=== PATIENT | female | born 1975 | race Caucasian/White ===

== ENCOUNTER 2019-10-18 00:50 | Emergency (ER) | payer OTHER, MEDICAID, SELFPAY ==
[2019-10-18 01:00] VITALS: BP 123/97; PULSE 101; RESP 20; TEMP 37.6; O2SAT 93; BMI 34.2
[2019-10-18 01:02] VITALS: PULSE 101; RESP 20; TEMP 37.6; O2SAT 93
--- NOTE | 2019-10-18 01:04 | ED.URI ---
HPI - URI/Sore Throat General Chief Complaint: Upper Respiratory Symptoms Stated Complaint: coughing, fever, fatigue diff breathing Time Seen by Provider: 10/18/19 00:52 Source: patient Mode of arrival: Family Vehicle Limitations: no limitations History of Present Illness HPI Narrative: 44-year-old female. Has a history of sarcoid. Uses oxygen at home as needed. Also has a nebulizer at home. States that for the past 2-3 days has had fatigue, increase in sputum production, fevers, body aches, she states she feels like she has the flu. Has been using her nebulizer at home without any improvement. Related Data Previous Rx's Medication Instructions Recorded azithromycin 250 mg PO DAILY 4 Days #4 tab 10/18/19 oseltamivir [Tamiflu] 75 mg PO BID 5 Days #10 cap 10/18/19 Allergies Allergy/AdvReac Type Severity Reaction Status Date / Time prochlorperazine Allergy Intermediate It sends Unverified 02/05/18 12:33 [From COMPAZINE] me into a Major panic attack Sulfa (Sulfonamide Allergy Intermediate HIVES Unverified 02/05/18 12:33 Antibiotics) [SULFA (SULFONAMIDE ANTIBIOTICS)] aspirin [ASPIRIN] Allergy Unknown THINS MY Unverified 02/05/18 12:33 BLOOD Review of Systems Constitutional Constitutional: Reports fatigue, Reports fever(s) and Reports lethargy ENT Ears, Nose, Mouth, and Throat: Denies nasal congestion, Denies nasal discharge and Denies sore throat Cardiovascular Cardiovascular: Denies chest pain and Reports dyspnea Respiratory Respiratory: Reports cough and Reports dyspnea Gastrointestinal Gastrointestinal: Denies abdominal pain, Denies nausea and Denies vomiting Genitourinary Genitourinary: Denies dysuria Musculoskeletal Musculoskeletal: Denies myalgias and Denies arthralgias Integumentary/Breasts Skin/Breast: Denies lesions and Denies rash Neurologic Neurologic: Denies behavioral changes Psychiatric Psychiatric: Denies behavioral changes Endocrine Endocrine: Reports fatigue Hematologic/Lymphatic Hematologic/Lymphatic: Denies easy bleeding and Denies easy bruising Allergic/Immunologic Allergic/Immunologic: Denies urticaria Patient History Medical History Sarcoid (Inactive) Social History Smoking Status: Current every day smoker Smoking Status: Current every day smoker tobacco type: cigarettes alcohol intake frequency: holidays/special occasions only Substance Use Type: does not use Exam Initial Vital Signs Initial Vital Signs: Vital Signs Temperature 99.7 F H 10/18/19 01:00 Pulse Rate 101 H 10/18/19 01:00 Respiratory Rate 20 10/18/19 01:00 Blood Pressure 123/97 H 10/18/19 01:00 Pulse Oximetry 93 10/18/19 01:00 Const General: cooperative, healthy appearing and comfortable Orientation: alert and awake HENMT Head: normal to inspection and normocephalic Resp Effort & Inspection: labored and tachypneic Auscultation: rhonchi Cardio Rate: regular rate Rhythm: regular rhythm GI Inspection: non-distended Skin Lesions: no lesions Rashes: no rashes Neuro General: alert and awake Cognition: normal cognition Speech: speech normal Extrem General: normal to inspection, capillary refill normal and No edema Psych Appearance: grossly normal and well kempt Course Orders Ordered: ED Orders 10/18/19 01:05 XR chest 1V Stat 10/18/19 01:10 Influenza A & B (PCR) Stat Discontinued Medications Albuterol/Ipratropium (Duoneb) 3 ml INH NOW ONE Stop: 10/18/19 01:03 Last Admin: 10/18/19 01:08 Dose: 3 ml Documented by: DONALD Azithromycin (Zithromax) 500 mg PO NOW ONE Stop: 10/18/19 01:53 Last Admin: 10/18/19 02:04 Dose: 500 mg Documented by: JOEY Vital Signs Vital signs: Vital Signs - 8 hr 10/18/19 01:00 10/18/19 01:02 10/18/19 01:08 Temperature 99.7 F H 99.7 F H Pulse Rate 101 H 101 H 84 Respiratory Rate 20 20 22 Blood Pressure 123/97 H Pulse Oximetry 93 93 94 10/18/19 02:00 Temperature Pulse Rate 88 Respiratory Rate 18 Blood Pressure 153/93 H Pulse Oximetry 99 MDM - URI/Sore Throat Lab Data Attestation: I reviewed the patient's lab results. Labs: Lab Results 10/18/19 Range/Units 01:10 Influenza A (RT-PCR) Flu a positive H (NEGATIVE) Influenza B (RT-PCR) Flu b negative (NEGATIVE) Imaging Data Chest x-ray: Radiologist's impression: Increased markings right lower lobe potential pneumonia MDM Narrative Medical decision making narrative: Patient has oxygen that she uses occasionally at home. She is flu positive. Her symptoms have started greater than 48 hours ago. I did discuss that Tamiflu is most likely not going to be effective however given her underlying lung issues in her use of oxygen in her the presenting symptoms treating her with Tamiflu is not unreasonable. She was given a prescription for this. She also has had a productive cough, body aches, fevers, chest x-ray has increased markings in the right lower lobe which could be concerning for pneumonia. She has prednisone at home. She is going to start taking her prednisone. I also feel that given her presenting symptoms and her lung underlying lung issues that treating her with antibiotics is not unreasonable. She was given 1st dose of azithromycin here in the ER and a prescription for the remainder. She was given return precautions and follow-up instructions. She expressed understanding and agreement plan. Discharge Plan Departure Patient Disposition: Home Clinical Impression: Influenza, Bronchitis, Sarcoid Discharge Date/Time: 10/18/19 02:00 Instructions: DI for Influenza -- Adult Activity Restrictions/Additional Instructions: You can continue to take either Tylenol or ibuprofen for your fevers and body aches. I do recommend that you take 20 mg of the prednisone you have at home on a daily basis for the next 5 days. Take antibiotics like we discussed. Take the Tamiflu as directed. I'd also continue to use your nebulizers at home every 4 hours as needed. Return to the emergency department for any new or worsening symptoms Prescriptions: New azithromycin 250 mg tablet 250 mg PO DAILY 4 Days Qty: 4 RF: 0 oseltamivir [Tamiflu] 75 mg capsule 75 mg PO BID 5 Days Qty: 10 RF: 0
--- NOTE | 2019-10-18 01:05 | DI.RAD.S_ITS ---
PROCEDURE: XR CHEST 1V INDICATIONS: Cough and fever eval for pneumonia TECHNIQUE: One view of the chest was acquired. COMPARISON: [facility], CR, XR CHEST 2 VIEWS, 04/01/2019, 13:30[facility], CR, CHEST 1 VIEW, 05/11/2016, 23:57. FINDINGS: Surgical changes and devices: None. Lungs and pleura: The lungs are clear. Subtly increased pulmonary markings at the right lung base are unchanged when compared with the study dated 04/01/19 and likely represent pulmonary vasculature. No acute pulmonary radiopacities. No pleural effusion or pneumothorax. Mediastinum: Mediastinal contours appear normal. Heart size is normal. Bones and chest wall: No suspicious bony lesions. Overlying soft tissues appear unremarkable. IMPRESSION: No acute cardiopulmonary findings. Dictated by: Talia Cooley M.D. on 10/18/2019 at 6:42 Approved by: Talia Cooley M.D. on 10/18/2019 at 6:45
[2019-10-18 01:08] VITALS: PULSE 84; RESP 22; O2SAT 94
[2019-10-18] MEDS: ALBUTEROL/IPRATROPIUM 3 ML AMPUL INH (01:08)
[2019-10-18 01:41] LABS: Influenza A - CEPHEID Flu A POSITIVE (NEGATIVE); Influenza B - CEPHEID Flu B NEGATIVE (NEGATIVE)
[2019-10-18 02:00] VITALS: BP 153/93; PULSE 88; RESP 18; O2SAT 99
[2019-10-18] MEDS: AZITHROMYCIN 250 MG TABLET 500 MG PO (02:04)
== END 2019-10-18 02:00 | disposition home or self-care (01) ==
PROVIDERS: Emergency Provider Emergency Medicine
DX: J09.X2 Influenza due to identified novel influenza A virus with other respiratory manifestations (principal); J20.9 Acute bronchitis, unspecified; D86.9 Sarcoidosis, unspecified
CPT/HCPCS: 71045; 87502; 94640; 99281; 99283

== ENCOUNTER 2019-12-28 17:56 | Emergency (ER) | payer OTHER, MEDICAID, SELFPAY ==
[2019-12-28 18:08] VITALS: BP 122/62; PULSE 83; RESP 18; TEMP 36.8; O2SAT 95; BMI 33.1
[2019-12-28] MEDS: MAG HYDROX PO (19:11)
[2019-12-28] MEDS: [UNRECOGNIZED DRUG - OTHER] PO (19:11)
[2019-12-28] MEDS: ALUMINUM PO (19:11)
--- NOTE | 2019-12-28 19:41 | ED_ITS ---
HPI - Dental/Oral <TERELL Henley - Last Filed: 12/28/19 20:03> General Chief complaint: Dental/Oral Stated complaint: poss thrush/mouth lesions Time Seen by Provider: 12/28/19 18:02 Source: patient Mode of arrival: Ambulatory Limitations: no limitations History of Present Illness HPI Narrative: This is a 44 year female, smoker, who presents to ED with painful oral lesions. Patient reports chronic lung condition sarcoid and takes 2 inhalers including inhaled corticosteroid, Arnuity. 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 Moe about a month ago. Patient reports the white patches has improved but now she is having painful oral lesions. Patient reports she is unable to use her dentures or eating due to pain. Patient has history of genital herpes but without frequent recurrence and she is wondering whether her symptoms are due to HSV type 2. Patient denies having oral sex who has genital herpes infection. She denies history of diabetes but reports that she is immunocompromised. She currently is not taking steroids systematically. She denies fever, chills, nausea or vomiting. Related Data Home Medications Medication Instructions Recorded Confirmed fluticasone furoate [Arnuity INHALATION 12/28/19 Ellipta] nystatin 12/28/19 tiotropium-olodaterol [Stiolto INHALATION 12/28/19 Respimat] Previous Rx's Medication Instructions Recorded chlorhexidine gluconate 15 ml BUCCAL BID #450 ml 12/28/19 lidocaine HCl [Lidocaine Viscous] 5 ml MM Q8H PRN #100 ml 12/28/19 Allergies Allergy/AdvReac Type Severity Reaction Status Date / Time prochlorperazine Allergy Intermediate It sends Verified 12/28/19 19:11 [From COMPAZINE] me into a Major panic attack Sulfa (Sulfonamide Allergy Intermediate HIVES Verified 12/28/19 19:11 Antibiotics) [SULFA (SULFONAMIDE ANTIBIOTICS)] aspirin [ASPIRIN] Allergy Unknown THINS MY Verified 12/28/19 19:11 BLOOD Review of Systems <TERELL Henley - Last Filed: 12/28/19 20:03> Review of Systems Narrative: General: Denies fever, chills, fatigue, malaise, sweats. HEENT: See HPI Respiratory: Denies dyspnea, cough, wheezing, hemoptysis, sputum. Cardiovascular: Denies chest pain, palpitations, orthopnea, edema. Gastrointestinal: Denies nausea, vomiting, abdominal pain, diarrhea, constipation, melena. : Denies dysuria, frequency, incontinence, hematuria, urinary retention. Musculoskeletal: Denies weakness, joint pain or bony pain. Skin: Denies rash, skin lesions, or other. Neurologic: Denies weakness, headache, numbness, change in speech, confusion, seizures, incoordination. Psychiatric: No concerning psychosocial issues. 12-point review of systems is negative except for those stated above. Patient History <TERELL Henley - Last Filed: 12/28/19 20:03> Medical History Colon cancer (Acute) Sarcoid (Inactive) Surgical History H/O left knee surgery (Acute) History of appendectomy (Acute) History of lung surgery (Acute) History of surgical removal of intestinal structure (Acute) Social History Smoking Status: Current every day smoker Smoking Status: Current every day smoker tobacco type: cigarettes alcohol intake frequency: holidays/special occasions only Substance Use Type: does not use Exam <TERELL Henley - Last Filed: 12/28/19 20:03> Narrative Exam Narrative: General appearance: well developed, well nourished, in no acute distress. Head: normocephalic, atraumatic, no scalp lesions, non-tender. ENT: Hearing grossly intact. Edentuolus, mucous membrane dry, white patches on tongue and hard palate. Non blistering, non-erythematous lesions on upper gum. Throat without erythema, tonsillar hypertrophy or exudate. Uvula in midline, airway patent. Neck/Thyroid: neck supple, full range of motion, no visible masses or meningeal signs. No JVD, non-tender without lymphadenopathy. Skin: no suspicious rashes, lesions over visible areas. Warm and dry and appropriate color for ethnicity. Heart: no clubbing, no cyanosis, no edema. S1 and S2 normal. RRR w/o murmurs, clicks, or bruits. Lungs: Breathing even and unlabored. No stridor. No accessory muscles used. Able to speak in full sentences. Chest: normal shape and expansion. Abdomen: obese, non-distended. Neurologic: alert and oriented. 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 Psych: good eye contact, normal affect. Initial Vital Signs Initial Vital Signs: Vital Signs Temperature 98.2 F 12/28/19 18:08 Pulse Rate 83 12/28/19 18:08 Respiratory Rate 18 12/28/19 18:08 Blood Pressure 122/62 12/28/19 18:08 Pulse Oximetry 95 12/28/19 18:08 <Derick Mendoza MD - Last Filed: 12/28/19 23:06> Initial Vital Signs Initial Vital Signs: Vital Signs Temperature 98.2 F 12/28/19 18:08 Pulse Rate 83 12/28/19 18:08 Respiratory Rate 18 12/28/19 18:08 Blood Pressure 122/62 12/28/19 18:08 Pulse Oximetry 95 12/28/19 18:08 Scores <TERELL Henley - Last Filed: 12/28/19 20:03> GCS Elsie coma scale eye opening: Spontaneous Elsie coma scale verbal response: Orientated [place] coma scale motor response: Obey commands Elsie coma scale total score: 15 Course <TERELL Henley - Last Filed: 12/28/19 20:03> Orders Ordered: ED Orders 12/28/19 19:00 Wound Culture and Gram Stain Stat Discontinued Medications Al Hydrox/Mg Hydrox/Simethicone 10 ml/ Lidocaine HCl 10 ml 0 ml PO NOW ONE Stop: 12/28/19 19:01 Last Admin: 12/28/19 19:11 Dose: 35 ml Documented by: KHADAR Vital Signs Vital signs: Vital Signs - 8 hr 12/28/19 18:08 Temperature 98.2 F Pulse Rate 83 Respiratory Rate 18 Blood Pressure 122/62 Pulse Oximetry 95 <Derick Mendoza MD - Last Filed: 12/28/19 23:06> Orders Ordered: ED Orders 12/28/19 19:00 Wound Culture and Gram Stain Stat Discontinued Medications Al Hydrox/Mg Hydrox/Simethicone 10 ml/ Lidocaine HCl 10 ml 0 ml PO NOW ONE Stop: 12/28/19 19:01 Last Admin: 12/28/19 19:11 Dose: 35 ml Documented by: KHADAR Vital Signs Vital signs: Vital Signs - 8 hr 12/28/19 18:08 Temperature 98.2 F Pulse Rate 83 Respiratory Rate 18 Blood Pressure 122/62 Pulse Oximetry 95 MDM - Dental/Oral <TERELL Henley - Last Filed: 12/28/19 20:03> Differential Diagnosis Differential diagnosis: Likely gingival abscess, aphthous ulcer and other (oral thrush, HSV 1) Medical Records Attestation: I reviewed the patient's medical records. Lab Data Labs: Point of Care Testing Glucose POC 98 MDM Narrative Medical decision making narrative: This is 44-year-old smoker who uses inhaled corticosteroids regularly for sarcoid condition. She reports developed oral thrush about a month ago and has been using nystatin with some improvement on white patches. Patient reports now she has painful oral lesions and has been having difficult time using her dentures and eating due to pain. Patient has few non blistering, non erythematous, non-edematous open lesions on upper gum. Patient was provided with a GI cocktail while in ED for comfort and discharged to home with chlorhexidine oral rinses and viscous lidocaine gel for comfort. Return precautions were discussed with the patient and patient advised to follow-up with her PCP/dentist/towel rolling machine operator if her symptoms not improve. Patient verbalized understanding and in agreement with the treatment plan. <Derick Mendoza MD - Last Filed: 12/28/19 23:06> Lab Data Labs: Point of Care Testing Glucose POC 98 Discharge Plan Departure Patient Disposition: Home Clinical Impression: Lesion of mouth, Thrush, oral Discharge Date/Time: 12/28/19 19:19 Instructions: DI for Thrush, DI for Mouth Lesions Activity Restrictions/Additional Instructions: You have been diagnosed with [mom lesion likely from thrush infection. Mouth culture is pending and you will receive a phone call if you need other medications. Please continue with your nystatin medication. Please rinse well after you use your inhaled corticosteroids]. What to do: *Take your medications as directed. Please rinse her mouth with chlorhexidine gluconate twice a day for 30 seconds. Do not eat or drink immediately after this. You can take lidocaine viscous 2 to 3 times a day as needed before eating for discomfort. You can also makes lidocaine viscous with same amount of Mylanta and swish and spit. *Follow up with your primary care provider/dentist/towel rolling machine operator in 2-3 days, call for an appointment. Let them know you were seen in the ED and that we asked you to be seen in follow up. *Return to ED if you have any new, worsening, or concerning symptoms, such as [fever, chest pain, breathing difficulty, unable to tolerate fluids, increasing pain or any acute concerns]. Prescriptions: New chlorhexidine gluconate 0.12 % mouthwash 15 ml BUCCAL BID Qty: 450 RF: 0 Lidocaine Viscous 2 % solution 5 ml MM Q8H PRN (Reason: pain) Qty: 100 RF: 0 No Action Arnuity Ellipta 200 mcg/actuation blister with device INHALATION RF: 0 nystatin 100,000 unit/mL suspension RF: 0 Stiolto Respimat 2.5-2.5 mcg/actuation mist INHALATION RF: 0
== END 2019-12-28 19:19 | disposition home or self-care (01) ==
PROVIDERS: Emergency Provider Nurse Practitioner Family
DX: K13.70 Unspecified lesions of oral mucosa (principal); B37.0 Candidal stomatitis
CPT/HCPCS: 82962; 87070; 87075; 87077; 87205; 99283

== ENCOUNTER 2020-05-14 22:44 | Emergency (ER) | payer OTHER, MEDICAID, SELFPAY ==
[2020-05-14 22:45] VITALS: BP 140/82; PULSE 93; RESP 16; TEMP 37.2; O2SAT 100; BMI 33.4
--- NOTE | 2020-05-14 22:54 | ED.ABDPAIN ---
HPI - Abdominal Pain General Chief Complaint: Abdominal Pain Stated Complaint: thinks galbladder issue, abdominal pain Time Seen by Provider: 05/14/20 22:53 History of Present Illness HPI narrative: 45-year-old woman with a history of colon cancer and sarcoid presents with a week of upper abdominal pain. She describes it as starting approximately a week ago with epigastric pain radiating straight through to her back that lasted for about 3 hours after awaking her from sleep. It seemed to resolve for approximately 2 days and then gradually began to come back. Over the last 3 days she has noticed increasing constant pain in the mid epigastrium across the entire upper abdomen radiating straight through to her back worse when she eats getting to his bad is 8/10 associated with nausea at that level of pain and subsiding to the consistent for out of 10. She is having no chest pain, has not vomited, she describes significant hot flashes recurrent for a number of months but no fevers or chills. She has had no cough, no rashes notes that she typically has 2 bowel movements a day after her ascending colon was removed secondary to cancer. She is not complaining of dyspnea or exertional dyspnea. Related Data Home Medications Medication Instructions Recorded Confirmed fluticasone furoate [Arnuity INHALATION 12/28/19 Ellipta] nystatin 12/28/19 tiotropium-olodaterol [Stiolto INHALATION 12/28/19 Respimat] Previous Rx's Medication Instructions Recorded chlorhexidine gluconate 15 ml BUCCAL BID #450 ml 12/28/19 lidocaine HCl [Lidocaine Viscous] 5 ml MM Q8H PRN #100 ml 12/28/19 pantoprazole [Protonix] 40 mg PO BID #60 each 05/15/20 Allergies Allergy/AdvReac Type Severity Reaction Status Date / Time prochlorperazine Allergy Intermediate It sends Verified 05/14/20 23:26 [From COMPAZINE] me into a Major panic attack Sulfa (Sulfonamide Allergy Intermediate HIVES Verified 05/14/20 23:26 Antibiotics) [SULFA (SULFONAMIDE ANTIBIOTICS)] aspirin [ASPIRIN] Allergy Unknown THINS MY Verified 05/14/20 23:26 BLOOD Review of Systems Review of Systems Narrative: Pertinent positive and negative findings as per HPI Remainder of review of systems is otherwise unremarkable for Constitutional: Fevers, chills, weakness ENT: No sore throat, neck pain, ear pain : Dysuria, hematuria, flank pain MS: Muscle weakness, numbness, joint swelling or warmth Skin: Rashes, nonhealing lesions Neuro: Syncope, dizziness, tingling Patient History Medical History Colon cancer (Acute) Sarcoid (Inactive) Surgical History H/O left knee surgery (Acute) History of appendectomy (Acute) History of lung surgery (Acute) History of surgical removal of intestinal structure (Acute) Social History Smoking Status: Current every day smoker Smoking Status: Current every day smoker tobacco type: cigarettes alcohol intake frequency: holidays/special occasions only Substance Use Type: does not use Exam Narrative Exam Narrative: General: Healthy appearing, in moderate distress secondary to pain. Able to give a complete and coherent history. Well-nourished well-developed HEENT: Moist mucous membranes, normal sclera with reactive pupils, Neck: No JVD, supple Respiratory: Lungs are clear to auscultation, no wheezing no rales no rhonchi. Full and symmetrical air movement Cardiac: Regular rate and rhythm no murmurs no bruits Abdomen: Mild distension, significant epigastric tenderness mild right upper quadrant tenderness, no rebound or guarding, good bowel tones, no flank pain Skin: Warm and dry, no rashes Neurologic: Grossly neurologically intact with no obvious asymmetries or abnormalities Extremities: No trauma, well perfused Psych: Cooperative, appropriate insight and affect Initial Vital Signs Initial Vital Signs: Vital Signs Temperature 98.9 F 05/14/20 22:45 Pulse Rate 93 H 05/14/20 22:45 Respiratory Rate 16 05/14/20 22:45 Blood Pressure 140/82 05/14/20 22:45 Pulse Oximetry 100 05/14/20 22:45 Course Orders Ordered: ED Orders 05/14/20 22:57 EKG-12 Lead Stat 05/14/20 23:04 CT abdomen pelvis w con Stat 05/14/20 23:20 Complete Blood Count AUTO DIFF Stat Comprehensive Metabolic Panel Stat Lipase Stat Magnesium Stat Troponin I Stat Fentanyl (Sublimaze) 50 mcg IV Q1H PRN PRN Reason: Pain, Severe (7-10) Last Admin: 05/14/20 23:44 Dose: 50 mcg Documented by: CECIL Discontinued Medications Hydromorphone HCl (Dilaudid) 0.5 mg IV NOW ONE Stop: 05/14/20 23:05 Last Admin: 05/14/20 23:18 Dose: Not Given Documented by: CECIL Sodium Chloride (Normal Saline 0.9%) 1,000 mls @ 1,000 mls/hr IV BOLUS ONE Stop: 05/14/20 23:56 Last Infusion: 05/15/20 00:31 Dose: 0 mls/hr Documented by: Admin: 05/14/20 23:18 Dose: 1,000 mls/hr Documented by: CECIL Sodium Chloride (Normal Saline 0.9%) 1,000 mls @ 1,000 mls/hr IV BOLUS ONE Stop: 05/15/20 00:03 Last Admin: 05/15/20 00:30 Dose: Not Given Documented by: LILIA Ondansetron HCl (Zofran) 4 mg IV NOW ONE Stop: 05/14/20 22:58 Last Admin: 05/14/20 23:18 Dose: 4 mg Documented by: CECIL Ondansetron HCl (Zofran) 4 mg IV NOW ONE Stop: 05/14/20 23:05 Last Admin: 05/15/20 00:31 Dose: Not Given Documented by: LILIA Vital Signs Vital signs: Vital Signs - 8 hr 05/14/20 22:45 05/14/20 23:00 05/14/20 23:43 Temperature 98.9 F Pulse Rate 93 H 94 H 85 Respiratory Rate 16 24 Blood Pressure 140/82 Pulse Oximetry 100 97 94 05/14/20 23:55 Temperature Pulse Rate 83 Respiratory Rate 24 Blood Pressure 132/75 Pulse Oximetry 96 MDM - Abdominal Pain Medical Records Attestation: I reviewed the patient's medical records. Lab Data Attestation: I reviewed the patient's lab results. Result diagrams: 05/14/20 23:20 05/14/20 23:20 Labs: Lab Results 05/14/20 05/14/20 05/14/20 Range/Units 23:20 23:20 23:20 WBC 12.5 H (4.5-11.0) X10^3/uL RBC 4.58 (4.0-5.2) X10^6/uL Hgb 13.7 (12.0-16.0) g/dL Hct 41.8 (36-46) % MCV 91.1 (80-100) fL MCH 30.0 (26-34) PG MCHC 32.9 (30-36) % RDW 13.6 (11.6-14.8) % Plt Count 230 (150-400) X10^3/uL Neut % (Auto) 63.1 (50-75) % Lymph % (Auto) 28.5 (25-40) % Yell % (Auto) 5.8 (3-14) % Eos % (Auto) 1.9 L (2-4) % Baso % (Auto) 0.7 (0-2) % Neut # (Auto) 7900 H (4710-7882) /uL Lymph # (Auto) 3500 (9547-4595) /uL Yell # (Auto) 700 (0-900) /uL Eos # (Auto) 200 (0-450) /uL Baso # (Auto) 100 (0-100) /uL Sodium 137 (137-145) mmol/L Potassium 3.8 (3.4-5.1) mmol/L Chloride 105 (98-107) mmol/L Carbon Dioxide 27 (22-32) mmol/L BUN 15 (7-17) mg/dL Creatinine 0.84 (0.52-1.04) mg/dL Estimated GFR > 60.0 (>60) mL/min BUN/Creatinine Ratio 17.9 (6-22) Glucose 106 H (70-100) mg/dL Calcium 8.7 (8.4-10.2) mg/dL Magnesium 1.7 (1.6-2.3) mg/dL Total Bilirubin 0.2 (0.2-1.3) mg/dL AST 22 (14-36) IU/L ALT 19 (<35) IU/L Alkaline Phosphatase 117 (38-126) U/L Troponin I < 0.012 (0.01-0.034) ng/mL Total Protein 6.1 L (6.3-8.2) g/dL Albumin 3.6 (3.5-5.0) g/dL Globulin 2.5 (1.7-4.1) g/dL Albumin/Globulin Ratio 1.4 (1.0-2.8) Lipase 184 (23-300) U/L Imaging Data CT scan - abdomen/pelvis: Radiologist's Impression: Unremarkable abdomen post right hemicolectomy. (Specifically no abnormalities appreciated in the biliary system stomach with normal aorta and vena cava diameters) 05/15/2020 1205am Young Erwin MD ECG Data Attestation: I personally reviewed and interpreted this ECG as follows: Interpretation: Sinus rhythm at a rate of 91 Normal axis, normal intervals No acute ischemic changes MDM Narrative Medical decision making narrative: 45-year-old woman with history of colon cancer and sarcoid presents with a week of severe abdominal pain. Labs are unrevealing and CT scan does not show any significant abnormalities. Specifically no gallstones, acute cholecystitis, cholangitis, aortic aneurysm, recurrent masses or tumors, abscess or intra-abdominal fluid collections, no free air to suggest perforating ulcer. Most likely diagnosis at this time is a gastric ulcer that is not seen on CT scan. Findings are reviewed with patient. On further questioning, she does note that she has had for migraines as we can has taken perhaps 20 ibuprofen over the course of the entire week. She does note that she occasionally has heartburn does use occasional Tums and Pepcid but isn't particularly troubled by any of the symptoms. She was just notified by her reed or wind instrument repairer that she is due for her routine colonoscopy follow-up for her colon cancer. Will suggest Protonix. Will also send her home with a small amount of Percocet to use for the significant pain she is having as well as Zofran to deal with any nausea as a consequence of the Percocet. Cautioned against aspirin ibuprofen Alenitin and Ivis-Jaclyn. Encouraged her to contact her reed or wind instrument repairer and let them know that she was in the emergency room and needs an emergency room follow-up for severe epigastric pain. Questions are answered and patient is safe for home discharge Discharge Plan Departure Patient Disposition: Home Clinical Impression: Acute epigastric pain Instructions: DI for Gastric Ulcer, DI for Peptic Ulcer Activity Restrictions/Additional Instructions: Thank you for coming in tonight Given your history and the severity of the pain as well as the location your visit was very appropriate. Your labs were reassuring as was your CT scan. There is no evidence of significant infection, blood loss, obvious recurrent tumor, gallbladder disease or liver concerns, your aorta is normal and there is no suggestion of free air to lead me to think about a perforated stomach ulcer. Given your pain location and the fact that it goes straight through to your back, it most likely is coming from your stomach or your duodenum and is most likely related to an ulcer. I am going to suggest that we start you on a proton pump inhibitor to reduce the acid levels in your stomach. Please take protonix 40mg am and pm for 2 weeks. On 05/29 you can decrease the dose to once daily. Please call your reed or wind instrument repairer office at [facility] to schedule an ER follow-up for severe epigastric abdominal pain. They likely will want to do an upper endoscopy and you can schedule your yearly follow-up colonoscopy at the same time. If you have worsening pain that can not be controlled at home, fevers, chills (beyond your usual hot flashes) or new or changed symptoms that would necessitate additional workup. Prescriptions: New Protonix [address] for susp in packet 40 mg PO BID Qty: 60 RF: 0 No Action chlorhexidine gluconate 0.12 % mouthwash 15 ml BUCCAL BID Qty: 450 RF: 0 Lidocaine Viscous 2 % solution 5 ml MM Q8H PRN (Reason: pain) Qty: 100 RF: 0 Arnuity Ellipta 200 mcg/actuation blister with device INHALATION RF: 0 nystatin 100,000 unit/mL suspension RF: 0 Stiolto Respimat 2.5-2.5 mcg/actuation mist INHALATION RF: 0
[2020-05-14 23:00] VITALS: PULSE 94; O2SAT 97
--- NOTE | 2020-05-14 23:04 | DI.CT.S_ITS ---
PROCEDURE: CT ABDOMEN PELVIS W CON INDICATIONS: upper abdominal pain for 1 week, h/o colon ca and sarcoid TECHNIQUE: After the administration of intravenous contrast, 5 mm thick sections acquired from the diaphragm to the symphysis. 5 mm coronal and sagittal reformats were acquired. For radiation dose reduction, the following was used: automated exposure control, adjustment of mA and/or kV according to patient size. COMPARISON: None. FINDINGS: Image quality: Excellent. ABDOMEN: Lung bases: There is a 4 mm subpleural nodule seen within the right lower lobe, as on series 4, image 3. Mild emphysematous changes are seen at the lung bases. Solid organs: Liver is normal in size and enhancement. Gallbladder wall is not thickened. Biliary system is non dilated. Pancreas enhances normally. Spleen is normal in size and enhancement. No adrenal nodules. Kidneys demonstrate normal size and enhancement, without hydronephrosis. Peritoneum and bowel: Diffuse moderate wall thickening can be seen involving the distal colon, beginning at the level of the splenic flexure. Minimal surrounding inflammatory changes are seen. No free air is seen. No significant free fluid can be seen. No loculated abscess is seen. Right hemicolectomy change can be seen. No dilated loops of small bowel are seen. Nodes and vessels: No retroperitoneal or mesenteric adenopathy by size criteria. Aorta and inferior vena cava are normal in size. Miscellaneous: A mild periumbilical hernia is seen, containing fat. PELVIS: Genitourinary: Bladder wall thickness is normal. The uterus appears normal for age. No adnexal masses are seen. Miscellaneous: No inguinal hernias or adenopathy. Bones: No suspicious bony lesions. No vertebral body compression fractures. IMPRESSION: Distal colitis. Please correlate with potential infectious or inflammatory causes. Incidental note is made of: Right hemicolectomy Fat containing periumbilical hernia 4 mm right pulmonary nodule Note: This case (including differences between this final report and the preliminary report) discussed by telephone with Dr. Mendoza at 7:45 a.m. [place] time on May 15, 2020. Dictated by: Jacob Phipps M.D. on 05/15/2020 at 7:40 Approved by: Jacob Phipps M.D. on 05/15/2020 at 7:46
[2020-05-14] MEDS: SODIUM CHLORIDE 0.9% 1,000 ML 1000 ML IV (23:18)
[2020-05-14] MEDS: ONDANSETRON 4 MG/2 ML INJ IV (23:18)
[2020-05-14 23:31] LABS: Add Manual Diff / Slide Review NO; Basophils Absolute Auto 100 /uL (0-100); Basophils Percent Auto 0.7 % (0-2); Eosinophils Absolute Auto 200 /uL (0-450); Eosinophils Percent Auto 1.9 % (2-4); Hematocrit 41.8 % (36-46); Hemoglobin 13.7 g/dL (12.0-16.0); Lymphocytes Absolute Auto 3500 /uL (1100-4500); Lymphocytes Percent Auto 28.5 % (25-40); Mean Corpuscular HGB Conc 32.9 % (30-36); Mean Corpuscular Volume 91.1 fL (80-100); Monocytes Absolute Auto 700 /uL (0-900); Monocytes Percent Auto 5.8 % (3-14); Neutrophils Absolute Auto 7900 /uL (1500-7000); Neutrophils Percent Auto 63.1 % (50-75); Platelet Count 230 X10^3/uL (150-400); Red Blood Cell Count 4.58 X10^6/uL (4.0-5.2); Red Cell Distribution Width 13.6 % (11.6-14.8); White Blood Cell Count 12.5 X10^3/uL (4.5-11.0)
[2020-05-14 23:40] LABS: Alanine Aminotransferase 19 IU/L (<35); Albumin 3.6 g/dL (3.5-5.0); Albumin Globulin Ratio 1.4 (1.0-2.8); Alkaline Phosphatase 117 U/L (38-126); Aspartate Aminotransferase 22 IU/L (14-36); BUN Creatinine Ratio 17.9 (6-22); Bilirubin Total 0.2 mg/dL (0.2-1.3); Blood Urea Nitrogen 15 mg/dL (7-17); Calcium 8.7 mg/dL (8.4-10.2); Carbon Dioxide 27 mmol/L (22-32); Chloride 105 mmol/L (98-107); Estimated Glomerular Filt Rate > 60.0 mL/min (>60); Globulin 2.5 g/dL (1.7-4.1); Glucose 106 mg/dL (70-100); HEMOLYSIS < 15 (0-50); Lipase 184 U/L (23-300); Magnesium 1.7 mg/dL (1.6-2.3); Potassium 3.8 mmol/L (3.4-5.1); Sodium 137 mmol/L (137-145); Total Protein 6.1 g/dL (6.3-8.2)
[2020-05-14 23:43] VITALS: PULSE 85; RESP 24; O2SAT 94
[2020-05-14] MEDS: fentaNYL 100 MCG/2 ML INJ 50 MCG IV (23:44)
[2020-05-14 23:51] LABS: Troponin I < 0.012 ng/mL (0.01-0.034)
[2020-05-14 23:55] VITALS: BP 132/75; PULSE 83; RESP 24; O2SAT 96
[2020-05-15 00:30] VITALS: BP 124/71; PULSE 75; RESP 19; O2SAT 96
[2020-05-15 01:09] VITALS: BP 129/79; PULSE 75; RESP 16; O2SAT 98
== END 2020-05-15 01:09 | disposition home or self-care (01) ==
PROVIDERS: Emergency Provider Emergency Medicine
DX: R10.13 Epigastric pain (principal); K52.9 Noninfective gastroenteritis and colitis, unspecified
CPT/HCPCS: 36415; 74177; 80053; 83690; 83735; 84484; 85025; 93005; 96361; 96374; 96375; 99284; J2405; J3010; Q9967

== ENCOUNTER 2020-06-16 16:48 | Emergency (ER) | payer OTHER, MEDICAID, SELFPAY ==
[2020-06-16 17:13] VITALS: BP 137/84; PULSE 85; RESP 16; TEMP 36.5; O2SAT 97; BMI 33.9
--- NOTE | 2020-06-16 17:26 | PC.NURSE ---
provider brought to triage to eyeball patient for NIOs
--- NOTE | 2020-06-16 17:30 | DI.RAD.S_ITS ---
PROCEDURE: XR CHEST 2V INDICATIONS: SOB has COPD TECHNIQUE: 2 views of the chest were acquired. COMPARISON: [facility], CR, XR CHEST 1 VIEW, 10/23/2019, 21:31. FINDINGS: Surgical changes and devices: None. Lungs and pleura: Lungs are clear. No pleural effusions or pneumothorax. Mediastinum: Mediastinal contours are normal. Heart size is normal. Bones and chest wall: No suspicious bony abnormalities. Soft tissues appear unremarkable. IMPRESSION: No acute cardiopulmonary disease. Dictated by: Luciana Reyez M.D. on 06/16/2020 at 16:52 Approved by: Luciana Reyez M.D. on 06/16/2020 at 16:52
--- NOTE | 2020-06-16 17:30 | DI.CT.S_ITS ---
PROCEDURE: CT HEAD/BRAIN WO CON INDICATIONS: bells palsy vs cva TECHNIQUE: Noncontrast 4.5 mm thick angled axial sections acquired from the foramen magnum to the vertex, with coronal and sagittal reformats. For radiation dose reduction, the following was used: automated exposure control, adjustment of mA and/or kV according to patient size. COMPARISON: [facility], MR, MR BRAIN W&WO CON, 05/24/2016, 15:27. [facility], CT, HEAD WITHOUT CONTRAST, 05/11/2016, 23:53. FINDINGS: Image quality: Excellent. CSF spaces: Basal cisterns are patent. No extra-axial fluid collections. Ventricles are normal in size and shape. Brain: No midline shift. No intracranial masses or hemorrhage. Lu-white matter interface is normal. A possible medial left temporal arachnoid cyst versus dilated perivascular space is stable, and incidental. Skull and face: Calvarium and visualized facial bones are intact, without suspicious lesions. Sinuses: Visualized sinuses and mastoids are clear. IMPRESSION: No evidence acute stroke, hemorrhage, or mass. Dictated by: Eduardo Lopez M.D. on 06/16/2020 at 17:56 Approved by: Eduardo Lopez M.D. on 06/16/2020 at 17:57
--- NOTE | 2020-06-16 17:35 | ED_ITS ---
HPI - Neuro Symptoms/Deficit General Chief Complaint: Neuro Symptoms/Deficit Stated Complaint: right side facial drop since Saturday Time Seen by Provider: 06/16/20 17:23 Source: patient Mode of arrival: Ambulatory Limitations: no limitations History of Present Illness HPI Narrative: The patient presents with left facial droop that started 6 days ago. Symptoms persist. She has a prior history of Bravo's palsy that resolved. She has no confusion, visual changes, or speech changes. She complains of initial left hand tingling, she has no numbness at this time. She has no weakness. She has no balance issues or difficulty walking. She has no history of arrhythmia or CVA. She continues to be an active smoker, she has a history of COPD. She requires oxygen occasionally at home. She describes progressive dyspnea, especially nighttime dyspnea. She has no associated chest pain. She denies peripheral edema. She has fever or productive cough. On Anticoagulants: No Related Data Home Medications Medication Instructions Recorded Confirmed fluticasone furoate [Arnuity INHALATION 12/28/19 Ellipta] nystatin 12/28/19 tiotropium-olodaterol [Stiolto INHALATION 12/28/19 Respimat] Previous Rx's Medication Instructions Recorded chlorhexidine gluconate 15 ml BUCCAL BID #450 ml 12/28/19 lidocaine HCl [Lidocaine Viscous] 5 ml MM Q8H PRN #100 ml 12/28/19 pantoprazole [Protonix] 40 mg PO BID #60 each 05/15/20 prednisone 60 mg PO DAILY 5 Days #15 tab 06/16/20 valacyclovir 1,000 mg PO BID 7 Days #28 tab 06/16/20 Allergies Allergy/AdvReac Type Severity Reaction Status Date / Time prochlorperazine Allergy Intermediate It sends Verified 06/16/20 17:22 [From COMPAZINE] me into a Major panic attack Sulfa (Sulfonamide Allergy Intermediate HIVES Verified 06/16/20 17:22 Antibiotics) [SULFA (SULFONAMIDE ANTIBIOTICS)] aspirin [ASPIRIN] Allergy Unknown THINS MY Verified 06/16/20 17:22 BLOOD Review of Systems Review of Systems ROS Unobtainable: All systems reviewed & are unremarkable except as noted in HPI and below Constitutional Constitutional: Denies chills, Denies fever(s), Denies frequent falls and Denies lethargy Eyes Comments: Left eye dryness. No visual changes. Inability to close the left eye. ENT Ears, Nose, Mouth, and Throat: Denies change in voice, Denies dizziness, Denies neck pain and Denies sore throat Cardiovascular Cardiovascular: Denies chest pain, Denies irregular heart rhythm, Denies lightheadedness, Denies palpitations and Reports dyspnea Respiratory Respiratory: Reports as per HPI, Denies cough, Reports dyspnea and Denies wheezing Gastrointestinal Gastrointestinal: Denies abdominal pain, Denies change in bowel habits, Denies diarrhea, Denies nausea and Denies vomiting Musculoskeletal Musculoskeletal: Denies back pain, Denies myalgias, Denies neck pain and Denies numbness Integumentary/Breasts Skin/Breast: Denies pruritus, Denies erythema, Denies rash and Denies wounds Neurologic Neurologic: Denies behavioral changes, Denies confusion, Denies dizziness, Denies frequent falls and Denies numbness Comments: Left facial droop, see HPI. Psychiatric Psychiatric: Denies behavioral changes and Denies confusion Endocrine Endocrine: Denies palpitations Allergic/Immunologic Allergic/Immunologic: Denies wheezing Patient History Medical History Bravo's palsy (Inactive) Colon cancer (Acute) Sarcoid (Inactive) Surgical History H/O left knee surgery (Acute) History of appendectomy (Acute) History of lung surgery (Acute) History of surgical removal of intestinal structure (Acute) Social History Smoking Status: Current every day smoker Smoking Status: Current every day smoker tobacco type: cigarettes alcohol intake frequency: holidays/special occasions only Substance Use Type: does not use Exam Initial Vital Signs Initial Vital Signs: Vital Signs Temperature 97.7 F 06/16/20 17:13 Pulse Rate 85 06/16/20 17:13 Respiratory Rate 16 06/16/20 17:13 Blood Pressure 137/84 06/16/20 17:13 Pulse Oximetry 97 06/16/20 17:13 Const General: cooperative, well developed and anxious Nutritional Appearance: well nourished [facility] Head: normal to inspection, normocephalic, atraumatic and other (Left facial droop.) Mouth: oral mucosae normal and lip normal Throat: posterior oropharynx normal Eyes General: appearance normal, both eyes and all related structures Eyelids: eyelids normal Conjunctivae: conjunctivae normal Sclera: sclerae normal Pupils: PERRL EOM: EOM intact bilaterally Other: She cannot close the left eyelid. Neck Neck: No lymphadenopathy and No JVD Chest Chest: normal inspection of the chest Resp Effort & Inspection: normal respiratory effort and able to speak in complete sentences Auscultation: diminished lung sounds, no rales, no rhonchi and no wheezes Cardio Rate: regular rate Rhythm: regular rhythm Heart Sounds: S1 normal, S2 normal, no click, no gallops, no murmurs and no rubs Pulses: normal peripheral pulses GI Inspection: non-distended Palpation: soft, no hepatosplenomegaly, No guarding, No pulsatile mass and No tender Auscultation: normal bowel sounds Back/Spine/Pelvis Thoracic/Lumbar Spine: thoracic and lumbar spine normal to inspection Skin General: no rashes or lesions noted, No jaundice and No petechiae Neuro General: patient alert, patient oriented x3 and gait normal Speech: speech normal Other: Left facial droop. Left forehead lack of definition. Left eyelid does not close. Numbness in the left lateral nose in the left cheek. Extrem General: full ROM and no pedal edema Psych Appearance: well kempt Mental Status: mental status grossly normal Attitude: cooperative Thought Content: normal Judgment: judgment good Scores NIH Stroke Scale Level of Conciousness: Alert, keenly responsive Ask month/age: Answers both questions correctly. Open/close eyes, close hand: Performs both tasks correctly Best gaze horizontal: Normal Visual sandoval: No visual loss Facial palsy: Minor paralysis, flattened nasolabial fold, asymmetry on smiling Left arm drift: No drift for full 10 sec Right arm drift: No drift for full 10 sec Left leg drift: No drift for full 10 sec Right leg drift: No drift for full 10 sec Limb ataxia: Absent Sensory on face/arms/legs: Normal, no sensory loss Best language: No aphasia, normal Dysarthria: Normal Extinction or inattention: No abnormality Total NIH Stroke scale score: 1 Course Course Course Narrative: The patient had a obvious Bravo's palsy on the initial exam, this is her 2nd, a CT head was obtained was normal. I start her on Valtrex as well as prednisone at triage. I saw her again after the CT was completed. Her lungs are clear, but she has decreased flow. I think the steroids should help not only the Bravo's palsy, but her lung issue. I have repeatedly advised her to stop smoking cigarettes. Orders Ordered: ED Orders 06/16/20 17:30 CT head/brain wo con Stat Chest [XR chest 2V] Stat Discontinued Medications Prednisone (Deltasone) 60 mg PO NOW ONE Stop: 06/16/20 17:32 Last Admin: 06/16/20 18:00 Dose: 60 mg Documented by: ARIANA Valacyclovir HCl (Valtrex) 1,000 mg PO NOW ONE Stop: 06/16/20 17:34 Last Admin: 06/16/20 18:00 Dose: 1,000 mg Documented by: ARIANA Vital Signs Vital signs: Vital Signs - 8 hr 06/16/20 17:13 06/16/20 19:34 Temperature 97.7 F 96.9 F L Pulse Rate 85 77 Respiratory Rate 16 14 Blood Pressure 137/84 125/70 Pulse Oximetry 97 97 MDM - Neuro Symptoms/Deficit Imaging Data CT scan - head: Radiologist's Impression: [place] [address] CT Scan Report Signed Patient: Pili Alvarez LMR#: [id number] : 1975Acct:[id number] Age/Sex: 45 / FDate of Service: 06/16/20 Loc: ED Accession Number: [id number] Procedure: CT head/brain wo con Ordering Provider: Derick Mendoza MD PROCEDURE: CT HEAD/BRAIN WO CON INDICATIONS: bells palsy vs cva TECHNIQUE: Noncontrast 4.5 mm thick angled axial sections acquired from the foramen magnum to the vertex, with coronal and sagittal reformats. For radiation dose reduction, the following was used: automated exposure control, adjustment of mA and/or kV according to patient size. COMPARISON: [facility], MR, MR BRAIN W&WO CON, 05/24/2016, 15:27. [facility], CT, HEAD WITHOUT CONTRAST, 05/11/2016, 23:53. FINDINGS: Image quality: Excellent. CSF spaces: Basal cisterns are patent. No extra-axial fluid collections. Ventricles are normal in size and shape. Brain: No midline shift. No intracranial masses or hemorrhage. Lu-white matter interface is normal. A possible medial left temporal arachnoid cyst versus dilated perivascular space is stable, and incidental. Skull and face: Calvarium and visualized facial bones are intact, without suspicious lesions. Sinuses: Visualized sinuses and mastoids are clear. IMPRESSION: No evidence acute stroke, hemorrhage, or mass. Dictated by: Eduardo Lopez M.D. on 06/16/2020 at 17:56 Approved by: Eduardo Lopez M.D. on 06/16/2020 at 17:57 Chest x-ray: Radiologist's Impression: No acute cardiopulmonary process. Discharge Plan Departure Patient Disposition: Home Clinical Impression: Bravo's palsy, COPD with acute exacerbation Discharge Date/Time: 06/16/20 19:40 Instructions: Chronic Obstructive Pulmonary Disease, Bravo Palsy Activity Restrictions/Additional Instructions: Prednisone 60 mg daily for 5 days. Valacyclovir 2 times daily for 7 days as prescribed. Recheck with her doctor in about 1 weeks regarding COPD as well as the Bravo's syndrome. Return the ER if symptoms escalate. Prescriptions: New prednisone 20 mg tablet 60 mg PO DAILY 5 Days Qty: 15 RF: 0 valacyclovir 500 mg tablet 1,000 mg PO BID 7 Days Qty: 28 RF: 0 No Action chlorhexidine gluconate 0.12 % mouthwash 15 ml BUCCAL BID Qty: 450 RF: 0 Lidocaine Viscous 2 % solution 5 ml MM Q8H PRN (Reason: pain) Qty: 100 RF: 0 Arnuity Ellipta 200 mcg/actuation blister with device INHALATION RF: 0 nystatin 100,000 unit/mL suspension RF: 0 Stiolto Respimat 2.5-2.5 mcg/actuation mist INHALATION RF: 0 Protonix [address] for susp in packet 40 mg PO BID Qty: 60 RF: 0
[2020-06-16] MEDS: valACYclovir 500 MG TABLET 1000 MG PO (18:00)
[2020-06-16] MEDS: predniSONE 20 MG TABLET 60 MG PO (18:00)
[2020-06-16 19:34] VITALS: BP 125/70; PULSE 77; RESP 14; TEMP 36.1; O2SAT 97
--- NOTE | 2020-06-16 19:35 | PC.NURSE ---
unable to close left eye, left side facial droop. Unable to raise eyebrows on left eye. Negative FAST. Alert and oriented. Reports some increase SOB with COPD. Afebrile. Resp even and unlabored.
== END 2020-06-16 19:40 | disposition home or self-care (01) ==
PROVIDERS: Emergency Provider Emergency Medicine
DX: G51.0 Bell's palsy (principal); J44.1 Chronic obstructive pulmonary disease with (acute) exacerbation
CPT/HCPCS: 70450; 71046; 99284

== ENCOUNTER 2021-01-11 11:18 | Emergency (ER) | payer OTHER, MEDICAID, SELFPAY ==
[2021-01-11 11:19] VITALS: BP 155/86; PULSE 90; RESP 20; TEMP 37.3; O2SAT 96; BMI 33.4
[2021-01-11 11:38] VITALS: BP 150/84; PULSE 85; RESP 25; O2SAT 97
--- NOTE | 2021-01-11 11:40 | ED.GENADULT ---
HPI - General Adult General Chief complaint: Abdominal Pain Stated complaint: severe abd pain today Time Seen by Provider: 01/11/21 11:23 Source: patient Mode of arrival: Ambulatory Limitations: no limitations History of Present Illness HPI narrative: Patient is a 45-year-old female here for evaluation of lower abdominal pain. States that her symptoms started this morning and she either woke with the symptoms of a started very shortly afterwards. Her pain has been worsening since then. She has had nausea but no vomiting. She had a normal bowel movement yesterday. Has not had 1 today. Is not passing flatus. Urinated today without problems. She has had a history of colon cancer and has had a bowel resection. She has also had bowel obstructions in the past. She does feel somewhat distended. No fevers. Related Data Home Medications Medication Instructions Recorded Confirmed fluticasone furoate [Arnuity INHALATION 12/28/19 Ellipta] nystatin 12/28/19 tiotropium-olodaterol [Stiolto INHALATION 12/28/19 Respimat] Previous Rx's Medication Instructions Recorded chlorhexidine gluconate 15 ml BUCCAL BID #450 ml 12/28/19 lidocaine HCl [Lidocaine Viscous] 5 ml MM Q8H PRN #100 ml 12/28/19 pantoprazole [Protonix] 40 mg PO BID #60 each 05/15/20 ondansetron 4 mg PO Q6H PRN #14 tab 01/11/21 Allergies Allergy/AdvReac Type Severity Reaction Status Date / Time prochlorperazine Allergy Intermediate It sends Verified 01/11/21 11:45 [From COMPAZINE] me into a Major panic attack Sulfa (Sulfonamide Allergy Intermediate HIVES Verified 01/11/21 11:45 Antibiotics) [SULFA (SULFONAMIDE ANTIBIOTICS)] aspirin [ASPIRIN] Allergy Unknown THINS MY Verified 01/11/21 11:45 BLOOD Review of Systems Constitutional Constitutional: Denies fever(s) and Denies headache(s) ENT Ears, Nose, Mouth, and Throat: Denies headache(s) Cardiovascular Cardiovascular: Denies chest pain and Denies dyspnea Respiratory Respiratory: Denies dyspnea Gastrointestinal Gastrointestinal: Reports abdominal pain, Reports bloating, Reports nausea and Denies vomiting Genitourinary Genitourinary: Denies dysuria Genitourinary: Denies dysuria Musculoskeletal Musculoskeletal: Denies arthralgias and Denies myalgias Integumentary/Breasts Skin/Breast: Denies rash Neurologic Neurologic: Denies behavioral changes and Denies headache(s) Psychiatric Psychiatric: Denies behavioral changes Hematologic/Lymphatic On Anticoagulants: No Allergic/Immunologic Allergic/Immunologic: Denies urticaria Patient History Medical History (Updated 01/11/21 @ 13:12 by Lauro Lawson DO) Bravo's palsy Colon cancer Sarcoid Surgical History H/O left knee surgery History of appendectomy History of lung surgery History of surgical removal of intestinal structure Social History Smoking Status: Current every day smoker Smoking Status: Current every day smoker tobacco type: cigarettes alcohol intake frequency: holidays/special occasions only Substance Use Type: does not use Exam Initial Vital Signs Initial Vital Signs: Vital Signs Temperature 99.2 F 01/11/21 11:19 Pulse Rate 90 01/11/21 11:19 Respiratory Rate 20 01/11/21 11:19 Blood Pressure 155/86 H 01/11/21 11:19 Pulse Oximetry 96 01/11/21 11:19 Const General: cooperative and comfortable Limitations: mental status not altered HENMT Head: normal to inspection and normocephalic Resp Effort & Inspection: normal respiratory effort Auscultation: clear to auscultation bilaterally Cardio Rate: regular rate Rhythm: regular rhythm GI Inspection: distended Palpation: soft, No firm and tender Skin Lesions: no lesions Rashes: no rashes Neuro General: patient alert and patient awake Cognition: normal cognition Speech: speech normal Extrem General: capillary refill normal Psych Appearance: grossly normal and well kempt Course Orders Ordered: ED Orders 01/11/21 11:35 Complete Blood Count AUTO DIFF Stat Comprehensive Metabolic Panel Stat Lactate (Lactic Acid) Stat Lipase Stat Test Serum,Qual Stat 01/11/21 11:37 EKG-12 Lead Stat 01/11/21 12:05 COVID19 - ADMIT ([employer] [employer] swab/PCR) Stat 01/11/21 12:14 CT abdomen pelvis w con Stat Discontinued Medications Hydromorphone HCl (Hydromorphone 0.5 Mg Inj) 0.5 mg IV NOW ONE Stop: 01/11/21 11:46 Last Admin: 01/11/21 11:54 Dose: 0.5 mg Documented by: CECIL Sodium Chloride (Normal Saline 0.9%) 1,000 mls @ 1,000 mls/hr IV BOLUS ONE Stop: 01/11/21 12:34 Last Admin: 01/11/21 11:53 Dose: 1,000 mls/hr Documented by: CECIL Ondansetron HCl (Ondansetron 4 Mg/2 Ml Inj) 4 mg IV NOW ONE Stop: 01/11/21 11:46 Last Admin: 01/11/21 11:54 Dose: 4 mg Documented by: CECIL Vital Signs Vital signs: Vital Signs - 8 hr 01/11/21 11:19 01/11/21 11:38 01/11/21 12:04 Temperature 99.2 F Pulse Rate 90 85 86 Respiratory Rate 20 25 H 22 Blood Pressure 155/86 H 150/84 H 146/65 H Pulse Oximetry 96 97 94 01/11/21 12:21 01/11/21 12:30 01/11/21 12:51 Temperature Pulse Rate 85 79 89 Respiratory Rate 12 19 22 Blood Pressure 140/63 145/69 H 136/55 L Pulse Oximetry 96 92 94 Medical Decision Making Lab Data Lab results reviewed: Yes I reviewed the patient's lab results. Result diagrams: 01/11/21 11:35 01/11/21 11:35 Labs: Lab Results 01/11/21 01/11/21 01/11/21 Range/Units 11:35 11:35 11:35 WBC 11.2 H (4.5-11.0) X10^3/uL RBC 4.88 (4.0-5.2) X10^6/uL Hgb 14.9 (12.0-16.0) g/dL Hct 44.9 (36-46) % MCV 92.1 (80-100) fL MCH 30.4 (26-34) PG MCHC 33.0 (30-36) % RDW 13.9 (11.6-14.8) % Plt Count 253 (150-400) X10^3/uL Neut % (Auto) 71.6 (50-75) % Lymph % (Auto) 22.5 L (25-40) % [place] % (Auto) 4.4 (3-14) % Eos % (Auto) 1.0 L (2-4) % Baso % (Auto) 0.5 (0-2) % Neut # (Auto) 8000 H (8083-3308) /uL Lymph # (Auto) 2500 (7310-1775) /uL [place] # (Auto) 500 (0-900) /uL Eos # (Auto) 100 (0-450) /uL Baso # (Auto) 100 (0-100) /uL Sodium 137 (137-145) mmol/L Potassium 3.8 (3.4-5.1) mmol/L Chloride 106 (98-107) mmol/L Carbon Dioxide 27 (22-32) mmol/L BUN 12 (7-17) mg/dL Creatinine 0.82 (0.52-1.04) mg/dL Estimated GFR > 60.0 (>60) mL/min BUN/Creatinine Ratio 14.6 (6-22) Glucose 124 H (70-100) mg/dL Lactate 1.0 (0.7-2.1) mmol/L Calcium 8.9 (8.4-10.2) mg/dL Total Bilirubin 0.5 (0.2-1.3) mg/dL AST 28 (14-36) IU/L ALT 20 (<35) IU/L Alkaline Phosphatase 121 (38-126) U/L Total Protein 6.5 (6.3-8.2) g/dL Albumin 3.8 (3.5-5.0) g/dL Globulin 2.7 (1.7-4.1) g/dL Albumin/Globulin Ratio 1.4 (1.0-2.8) Lipase 79 (23-300) U/L Serum , Qual (Negative) SARS-CoV-2 (PCR) (Negative) 01/11/21 01/11/21 Range/Units 11:35 12:05 WBC (4.5-11.0) X10^3/uL RBC (4.0-5.2) X10^6/uL Hgb (12.0-16.0) g/dL Hct (36-46) % MCV (80-100) fL MCH (26-34) PG MCHC (30-36) % RDW (11.6-14.8) % Plt Count (150-400) X10^3/uL Neut % (Auto) (50-75) % Lymph % (Auto) (25-40) % [place]linger % (Auto) (3-14) % Eos % (Auto) (2-4) % Baso % (Auto) (0-2) % Neut # (Auto) (1496-9897) /uL Lymph # (Auto) (9139-0771) /uL Bollinger # (Auto) (0-900) /uL Eos # (Auto) (0-450) /uL Baso # (Auto) (0-100) /uL Sodium (137-145) mmol/L Potassium (3.4-5.1) mmol/L Chloride (98-107) mmol/L Carbon Dioxide (22-32) mmol/L BUN (7-17) mg/dL Creatinine (0.52-1.04) mg/dL Estimated GFR (>60) mL/min BUN/Creatinine Ratio (6-22) Glucose (70-100) mg/dL Lactate (0.7-2.1) mmol/L Calcium (8.4-10.2) mg/dL Total Bilirubin (0.2-1.3) mg/dL AST (14-36) IU/L ALT (<35) IU/L Alkaline Phosphatase (38-126) U/L Total Protein (6.3-8.2) g/dL Albumin (3.5-5.0) g/dL Globulin (1.7-4.1) g/dL Albumin/Globulin Ratio (1.0-2.8) Lipase (23-300) U/L Serum , Qual Negative (Negative) SARS-CoV-2 (PCR) Negative (Negative) Urine Dip Bedside Urine Glucose Negative Bedside Urine Bilirubin - Negative Bedside Urine Ketone - Negative Urine Specific [place] 1.015 Bedside Urine Occult Blood - Negative Bedside Urine pH 6.0 Bedside Urine Protein - Negative Bedside Urine Urobilinogen - Negative Bedside Urine Nitrite - Negative Bedside Urine Leukocytes - Negative Esterase Point of care testing: Urine Dip Bedside Urine Glucose Negative Bedside Urine Bilirubin - Negative Bedside Urine Ketone - Negative Urine Specific [place] 1.015 Bedside Urine Occult Blood - Negative Bedside Urine pH 6.0 Bedside Urine Protein - Negative Bedside Urine Urobilinogen - Negative Bedside Urine Nitrite - Negative Bedside Urine Leukocytes - Negative Esterase Imaging Data CT scan - abdomen/pelvis: Radiologist's Impression: [address] [id number] Scan ReportSigned Patient: Pili Alvarez LMR#: [id number]: 1975Acct:[id number]/Sex: 45 / FDate of Service: 01/11/21Loc: EDAccession Number: [id number] Procedure: CT abdomen pelvis w con Ordering Provider: Lauro Lawson D.O. PROCEDURE: CT ABDOMEN PELVIS W CON INDICATIONS: History of colon cancer and obstructions TECHNIQUE: After the administration of intravenous contrast, 5 mm thick sections acquired from the diaphragm to the symphysis. 5 mm coronal and sagittal reformats were acquired. For radiation dose reduction, the following was used: automated exposure control, adjustment of mA and/or kV according to patient size. COMPARISON: [facility], CT, CT ABDOMEN PELVIS W CON, 05/14/2020, 23:28. [facility], CT, CT CHEST WITHOUT CONTRAST, 09/07/2020, 14:56. FINDINGS: Image quality: Excellent. ABDOMEN: Lung bases: Lung bases are clear. Small bilateral lung nodules stable compared to prior CT scan. Heart size is normal. Solid organs: Liver is normal in size and enhancement. Gallbladder is within normal limits. Biliary system is non dilated. Pancreas enhances normally. Spleen is normal in size and enhancement. No adrenal nodules. Kidneys demonstrate normal size and enhancement, without hydronephrosis. Peritoneum and bowel: Bowel loops demonstrate normal wall thickness and caliber. Postsurgical changes compatible with right colectomy noted. Mural fat deposition noted in the transverse colon, left colon and to a lesser degree the sigmoid colon which is nonspecific finding, but can be related to long-standing inflammatory bowel disease. No free fluid or air. Nodes and vessels: No retroperitoneal or mesenteric adenopathy by size criteria. Aorta and inferior vena cava are normal in size. Scattered atherosclerotic calcifications involving the abdominal and pelvic vasculature. Miscellaneous: Small fat containing periumbilical hernia is stable. PELVIS: Genitourinary: Bladder wall thickness is normal. Miscellaneous: No inguinal hernias or adenopathy. Bones: No suspicious bony lesions. No vertebral body compression fractures. IMPRESSION: 1. No acute disease process. 2. Stable partial colectomy postsurgical changes. 3. Mural fat deposition involving the residual colon. Finding is nonspecific but can be associated with longstanding inflammatory bowel disease. Please correlate with clinical data. 4. No dilated loops of bowel. 5. No free intraperitoneal fluid or air. 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 CT scan shows findings is consistent with chronic inflammation however there is no signs of an acute infectious nor surgical etiology today. She has an appointment with her oncologist tomorrow. Will send home with a prescription for nausea medication. She was given return precautions and follow-up instructions. She expressed understanding and agreement. Discharge Plan Departure Patient Disposition: Home Clinical Impression: Abdominal pain Instructions: DI for Abdominal Pain-Adult Activity Restrictions/Additional Instructions: The CT scan and your labs today are reassuring. There was neither an infectious nor surgical issue noticed today. I recommend that you keep your appointment tomorrow with your oncologist. A prescription for nausea medication was electronically transmitted to the pharmacy of your choice. Take it as needed. Return to emergency department for any new or worsening symptoms Prescriptions: New ondansetron 4 mg tablet,disintegrating 4 mg PO Q6H PRN (Reason: nausea and vomiting) Qty: 14 RF: 0 No Action chlorhexidine gluconate 0.12 % mouthwash 15 ml BUCCAL BID Qty: 450 RF: 0 Lidocaine Viscous 2 % solution 5 ml MM Q8H PRN (Reason: pain) Qty: 100 RF: 0 Arnuity Ellipta 200 mcg/actuation blister with device INHALATION RF: 0 nystatin 100,000 unit/mL suspension RF: 0 Stiolto Respimat 2.5-2.5 mcg/actuation mist INHALATION RF: 0 Protonix [address] for susp in packet 40 mg PO BID Qty: 60 RF: 0 Referrals: [facility] [place], [Other]
[2021-01-11 11:45] LABS: Add Manual Diff / Slide Review NO; Basophils Absolute Auto 100 /uL (0-100); Basophils Percent Auto 0.5 % (0-2); Eosinophils Absolute Auto 100 /uL (0-450); Hematocrit 44.9 % (36-46); Hemoglobin 14.9 g/dL (12.0-16.0); Lymphocytes Absolute Auto 2500 /uL (1100-4500); Lymphocytes Percent Auto 22.5 % (25-40); Mean Corpuscular Hemoglobin 30.4 PG (26-34); Mean Corpuscular Volume 92.1 fL (80-100); Monocytes Absolute Auto 500 /uL (0-900); Monocytes Percent Auto 4.4 % (3-14); Neutrophils Absolute Auto 8000 /uL (1500-7000); Neutrophils Percent Auto 71.6 % (50-75); Platelet Count 253 X10^3/uL (150-400); Red Blood Cell Count 4.88 X10^6/uL (4.0-5.2); Red Cell Distribution Width 13.9 % (11.6-14.8); White Blood Cell Count 11.2 X10^3/uL (4.5-11.0)
[2021-01-11] MEDS: SODIUM CHLORIDE 0.9% 1,000 ML 1000 ML IV (11:53)
[2021-01-11] MEDS: HYDROMORPHONE 0.5 MG INJ IV (11:54)
[2021-01-11] MEDS: ONDANSETRON 4 MG/2 ML INJ IV (11:54)
[2021-01-11 11:58] LABS: Alanine Aminotransferase 20 IU/L (<35); Albumin 3.8 g/dL (3.5-5.0); Albumin Globulin Ratio 1.4 (1.0-2.8); Alkaline Phosphatase 121 U/L (38-126); Aspartate Aminotransferase 28 IU/L (14-36); BUN Creatinine Ratio 14.6 (6-22); Bilirubin Total 0.5 mg/dL (0.2-1.3); Blood Urea Nitrogen 12 mg/dL (7-17); Calcium 8.9 mg/dL (8.4-10.2); Carbon Dioxide 27 mmol/L (22-32); Chloride 106 mmol/L (98-107); Estimated Glomerular Filt Rate > 60.0 mL/min (>60); Globulin 2.7 g/dL (1.7-4.1); Glucose 124 mg/dL (70-100); HEMOLYSIS < 15 (0-50); Lipase 79 U/L (23-300); Potassium 3.8 mmol/L (3.4-5.1); Sodium 137 mmol/L (137-145); Total Protein 6.5 g/dL (6.3-8.2)
[2021-01-11 12:04] VITALS: BP 146/65; PULSE 86; RESP 22; O2SAT 94
[2021-01-11 12:05] LABS: Pregnancy Test Serum,Qual Negative (Negative)
--- NOTE | 2021-01-11 12:14 | DI.CT.S_ITS ---
PROCEDURE: CT ABDOMEN PELVIS W CON INDICATIONS: History of colon cancer and obstructions TECHNIQUE: After the administration of intravenous contrast, 5 mm thick sections acquired from the diaphragm to the symphysis. 5 mm coronal and sagittal reformats were acquired. For radiation dose reduction, the following was used: automated exposure control, adjustment of mA and/or kV according to patient size. COMPARISON: [facility], CT, CT ABDOMEN PELVIS W CON, 05/14/2020, 23:28. [facility], CT, CT CHEST WITHOUT CONTRAST, 09/07/2020, 14:56. FINDINGS: Image quality: Excellent. ABDOMEN: Lung bases: Lung bases are clear. Small bilateral lung nodules stable compared to prior CT scan. Heart size is normal. Solid organs: Liver is normal in size and enhancement. Gallbladder is within normal limits. Biliary system is non dilated. Pancreas enhances normally. Spleen is normal in size and enhancement. No adrenal nodules. Kidneys demonstrate normal size and enhancement, without hydronephrosis. Peritoneum and bowel: Bowel loops demonstrate normal wall thickness and caliber. Postsurgical changes compatible with right colectomy noted. Mural fat deposition noted in the transverse colon, left colon and to a lesser degree the sigmoid colon which is nonspecific finding, but can be related to long-standing inflammatory bowel disease. No free fluid or air. Nodes and vessels: No retroperitoneal or mesenteric adenopathy by size criteria. Aorta and inferior vena cava are normal in size. Scattered atherosclerotic calcifications involving the abdominal and pelvic vasculature. Miscellaneous: Small fat containing periumbilical hernia is stable. PELVIS: Genitourinary: Bladder wall thickness is normal. Miscellaneous: No inguinal hernias or adenopathy. Bones: No suspicious bony lesions. No vertebral body compression fractures. IMPRESSION: 1. No acute disease process. 2. Stable partial colectomy postsurgical changes. 3. Mural fat deposition involving the residual colon. Finding is nonspecific but can be associated with longstanding inflammatory bowel disease. Please correlate with clinical data. 4. No dilated loops of bowel. 5. No free intraperitoneal fluid or air. Dictated by: Adenike Carballo MD, PhD on 01/11/2021 at 12:25 Approved by: Adenike Carballo MD, PhD on 01/11/2021 at 12:32
[2021-01-11 12:21] VITALS: BP 140/63; PULSE 85; RESP 12; O2SAT 96
[2021-01-11 12:30] VITALS: BP 145/69; PULSE 79; RESP 19; O2SAT 92
[2021-01-11 12:51] VITALS: BP 136/55; PULSE 89; RESP 22; O2SAT 94
[2021-01-11 12:57] LABS: COVID19 - ADMIT (NP swab/PCR) Negative (Negative)
== END 2021-01-11 13:29 | disposition home or self-care (01) ==
PROVIDERS: Emergency Provider Emergency Medicine
DX: R10.30 Lower abdominal pain, unspecified (principal); R11.0 Nausea; Z20.822 Contact with and (suspected) exposure to COVID-19
CPT/HCPCS: 36415; 74177; 80053; 81003; 83605; 83690; 84703; 85025; 87635; 93005; 93010; 96361; 96374; 96375; 99284; J1170; J2405; Q9967

== ENCOUNTER 2021-03-17 10:13 | Emergency (ER) | payer OTHER, MEDICAID, SELFPAY ==
[2021-03-17 10:25] VITALS: BP 131/83; PULSE 96; RESP 16; TEMP 36.4; O2SAT 99; BMI 34.0
[2021-03-17 11:05] LABS: COVID19 -Nasal RAPID Negative (Negative)
--- NOTE | 2021-03-17 12:37 | DI.RAD.S_ITS ---
PROCEDURE: XR LUMBAR SPINE 2-3V INDICATIONS: back pain TECHNIQUE: 3 views of the lumbar spine were acquired. COMPARISON: [facility], CR, XR LUMBAR SPINE 2 OR 3 VIEWS, 03/17/2021, 9:08. FINDINGS: Bones: No fracture. Disc spaces grossly preserved. Multilevel degenerative endplate sclerosis and spurring. Diffuse facet arthropathy. Soft tissues: Overlying bowel gas pattern is normal. No suspicious soft tissue calcifications. IMPRESSION: Mild discogenic changes. If the patient's pain or other symptoms persist, consider further evaluation with MRI Dictated by: Dominic Lockhart M.D. on 03/17/2021 at 13:24 Approved by: Dominic Lockhart M.D. on 03/17/2021 at 13:25
[2021-03-17 13:09] LABS: Add Manual Diff / Slide Review NO; Basophils Absolute Auto 100 /uL (0-100); Basophils Percent Auto 0.5 % (0-2); Eosinophils Absolute Auto 200 /uL (0-450); Eosinophils Percent Auto 1.3 % (2-4); Hematocrit 41.6 % (36-46); Hemoglobin 13.6 g/dL (12.0-16.0); Lymphocytes Absolute Auto 4500 /uL (1100-4500); Lymphocytes Percent Auto 36.6 % (25-40); Mean Corpuscular HGB Conc 32.7 % (30-36); Mean Corpuscular Hemoglobin 29.8 PG (26-34); Mean Corpuscular Volume 91.2 fL (80-100); Monocytes Absolute Auto 700 /uL (0-900); Monocytes Percent Auto 5.8 % (3-14); Neutrophils Absolute Auto 6800 /uL (1500-7000); Neutrophils Percent Auto 55.8 % (50-75); Platelet Count 246 X10^3/uL (150-400); Red Blood Cell Count 4.56 X10^6/uL (4.0-5.2); Red Cell Distribution Width 13.2 % (11.6-14.8); White Blood Cell Count 12.2 X10^3/uL (4.5-11.0)
[2021-03-17] MEDS: LIDOCAINE PATCH 1 EACH ADH..PATCH TOP (13:14)
[2021-03-17] MEDS: KETOROLAC 30 MG/ML VIAL IM (13:15)
[2021-03-17] MEDS: CYCLOBENZAPRINE 10 MG TABLET PO (13:15)
[2021-03-17 13:36] LABS: Alanine Aminotransferase 17 IU/L (<35); Albumin 3.4 g/dL (3.5-5.0); Albumin Globulin Ratio 1.3 (1.0-2.8); Alkaline Phosphatase 121 U/L (38-126); Aspartate Aminotransferase 19 IU/L (14-36); BUN Creatinine Ratio 23.8 (6-22); Bilirubin Total 0.3 mg/dL (0.2-1.3); Blood Urea Nitrogen 20 mg/dL (7-17); Calcium 9.1 mg/dL (8.4-10.2); Carbon Dioxide 27 mmol/L (22-32); Chloride 107 mmol/L (98-107); Estimated Glomerular Filt Rate > 60.0 mL/min (>60); Globulin 2.7 g/dL (1.7-4.1); Glucose 100 mg/dL (70-100); HEMOLYSIS < 15 (0-50); Magnesium 1.9 mg/dL (1.6-2.3); Potassium 3.5 mmol/L (3.4-5.1); Sodium 140 mmol/L (137-145); Total Protein 6.1 g/dL (6.3-8.2)
--- NOTE | 2021-03-17 13:54 | ED_ITS ---
HPI - Back Pain/Injury <Lynsey Gill, WAX MACHINE OPERATOR-BC - Last Filed: 03/17/21 15:16> General Chief Complaint: Back Pain/Injury Stated Complaint: low back pain/migraines/dizziness/fatigue Time Seen by Provider: 03/17/21 12:07 Source: patient Mode of arrival: Ambulatory Limitations: no limitations History of Present Illness HPI Narrative: The patient is a 45-year-old female back pain that has been ge tting worse over the past 2 weeks. This is a primary complaint, she also states she has been fatigued, dizzy on and off, is worried about her blood sugars, has had headaches. The secondary issues have been going on for at least 6 months. The patient states that she tried to get in with primary care provider, though they are unable to accept her because of insurance changes. She states she is p articularly concerned because of her history of colon cancer. She did see her oncologist on Saturday and said that he cannot find anything wrong with her. She denies any dysuria urgency or frequency. She denies any numbness of her groin, any recent incontinence of bowel or bladder. She does mention that last week she thought she was going to expel gas and ?expelled more and felt very moist however states that this was a one time incident and she knew she needed to pass gas.. She denies any falls or trauma precipitating factors to her back pain. She took an ibuprofen last night. Related Data Home Medications Medication Instructions Recorded Confirmed fluticasone furoate [Arnuity INHALATION 12/28/19 Ellipta] nystatin 12/28/19 tiotropium-olodaterol [Stiolto INHALATION 12/28/19 Respimat] Previous Rx's Medication Instructions Recorded chlorhexidine gluconate 15 ml BUCCAL BID #450 ml 12/28/19 lidocaine HCl [Lidocaine Viscous] 5 ml MM Q8H PRN #100 ml 12/28/19 pantoprazole [Protonix] 40 mg PO BID #60 each 05/15/20 ondansetron 4 mg PO Q6H PRN #14 tab 01/11/21 cyclobenzaprine 10 mg PO TID PRN #14 tab 03/17/21 ketorolac 10 mg PO TID PRN 5 Days #14 tab 03/17/21 lidocaine 1 patch TOPICAL DAILY PRN #15 ea 03/17/21 Allergies Allergy/AdvReac Type Severity Reaction Status Date / Time prochlorperazine Allergy Intermediate It sends Verified 03/17/21 10:33 [From COMPAZINE] me into a Major panic attack Sulfa (Sulfonamide Allergy Intermediate HIVES Verified 03/17/21 10:33 Antibiotics) [SULFA (SULFONAMIDE ANTIBIOTICS)] aspirin [ASPIRIN] Allergy Unknown THINS MY Verified 03/17/21 10:33 BLOOD Review of Systems <MAX Morales - Last Filed: 03/17/21 15:16> Review of Systems Narrative: GENERAL: Denies chills, fatigue, malaise, fever, sweats. HEENT: Denies sinus pain, ear pain, sore throat, difficulty swallowing, dizziness. RESPIRATORY: Denies dyspnea, cough, wheezing, hemoptysis, sputum. CARDIOVASCULAR: Denies chest pain, palpitations, orthopnea, edema, GASTROINTESTINAL: Denies nausea, vomiting, abdominal pain, diarrhea, constipation, melena. : Denies dysuria, frequency, incontinence, hematuria, urinary retention. MUSCULOSKELETAL: See HPI SKIN: Denies rash, skin lesions, or other NEUROLOGIC: See HPI PSYCHIATRIC: No concerning psychosocial issues. 12 point review of systems is negative except for those stated above Patient History <MAX Morales - Last Filed: 03/17/21 15:16> Medical History (Updated 03/17/21 @ 14:16 by MAX Morales) Bravo's palsy Colon cancer Sarcoid Surgical History H/O left knee surgery History of appendectomy History of lung surgery History of surgical removal of intestinal structure Social History Smoking Status: Current every day smoker Smoking Status: Current every day smoker tobacco type: cigarettes alcohol intake frequency: holidays/special occasions only Substance Use Type: does not use Exam <MAX Morales - Last Filed: 03/17/21 15:16> Narrative Exam Narrative: GENERAL: This is a well-nourished, well-developed patient, in mild distress. HEAD: Atraumatic. Normocephalic. No temporal or scalp tenderness. EYES: Pupils equal round and reactive. Extraocular motions intact. No scleral icterus. No injection or drainage. ENT: Nose without bleeding, purulent drainage or septal hematoma. Wearing a mask Airway patent. NECK: Trachea midline. No JVD or lymphadenopathy. Supple, nontender, no meningeal signs. CARDIOVASCULAR: Regular rate and rhythm RESPIRATORY: Diffuse expiratory wheeze to auscultation. Breath sounds equal bilaterally. No cough. No increased respiratory effort. No accessory muscle use. Speaking full sentences. EXTREMITIES: No clubbing, cyanosis, or edema. No joint tenderness, effusion, or edema noted. BACK: Diffuse pain to palpation of L-spine, pain to palpation bilateral paraspinal muscles of L-spine, no pain to palpation of C or T-spine. NEURO: AOx3. Strength is equal upper lower extremities bilaterally. Stable gait. SKIN: No rash or erythema on visible skin. Initial Vital Signs Initial Vital Signs: Vital Signs Temperature 97.6 F 03/17/21 10:25 Pulse Rate 96 H 03/17/21 10:25 Respiratory Rate 16 03/17/21 10:25 Blood Pressure 131/83 03/17/21 10:25 Pulse Oximetry 99 03/17/21 10:25 <Codie Alvarado DO - Last Filed: 03/17/21 19:45> Initial Vital Signs Initial Vital Signs: Vital Signs Temperature 97.6 F 03/17/21 10:25 Pulse Rate 96 H 03/17/21 10:25 Respiratory Rate 16 03/17/21 10:25 Blood Pressure 131/83 03/17/21 10:25 Pulse Oximetry 99 03/17/21 10:25 Scores <MAX Morales - Last Filed: 03/17/21 15:16> GCS Elsie coma scale eye opening: Spontaneous Elsie coma scale verbal response: Orientated [place] coma scale motor response: Obey commands Elsie coma scale total score: 15 Course <MAX Morales - Last Filed: 03/17/21 15:16> Orders Ordered: ED Orders 03/17/21 12:37 XR lumbar spine 2-3V Stat 03/17/21 13:00 Complete Blood Count AUTO DIFF Stat Comprehensive Metabolic Panel Stat Magnesium Stat Thyroid Stimulating Hormone Stat 03/17/21 13:02 EKG-12 Lead Stat Discontinued Medications Cyclobenzaprine HCl (Cyclobenzaprine 10 Mg Tablet) 10 mg PO NOW ONE Stop: 03/17/21 12:37 Last Admin: 03/17/21 13:15 Dose: 10 mg Documented by: MELISSA Ketorolac Tromethamine (Ketorolac 30 Mg/Ml Vial) 30 mg IM NOW ONE Stop: 03/17/21 12:37 Last Admin: 03/17/21 13:15 Dose: 30 mg Documented by: MELISSA Lidocaine (Lidocaine Patch 1 Each Adh..Patch) 1 each TOP NOW ONE Stop: 03/17/21 12:37 Last Admin: 03/17/21 13:14 Dose: 1 each Documented by: MELISSA Reevaluation(s) Reevaluation #1: The patient states that her pain is improving. Discussed waiting for continued lab results. Patient expresses frustration that her primary care provider dropped her to turn sure it is. I offered to give her contact information to the [facility] human resources trainee to help find new health resources. Time: 13:55 Vital Signs Vital signs: Vital Signs - 8 hr 03/17/21 10:25 Temperature 97.6 F Pulse Rate 96 H Respiratory Rate 16 Blood Pressure 131/83 Pulse Oximetry 99 <Codie Alvarado, DO - Last Filed: 03/17/21 19:45> Orders Ordered: ED Orders 03/17/21 12:37 XR lumbar spine 2-3V Stat 03/17/21 13:00 Complete Blood Count AUTO DIFF Stat Comprehensive Metabolic Panel Stat Magnesium Stat Thyroid Stimulating Hormone Stat 03/17/21 13:02 EKG-12 Lead Stat Discontinued Medications Cyclobenzaprine HCl (Cyclobenzaprine 10 Mg Tablet) 10 mg PO NOW ONE Stop: 03/17/21 12:37 Last Admin: 03/17/21 13:15 Dose: 10 mg Documented by: MELISSA Ketorolac Tromethamine (Ketorolac 30 Mg/Ml Vial) 30 mg IM NOW ONE Stop: 03/17/21 12:37 Last Admin: 03/17/21 13:15 Dose: 30 mg Documented by: MELISSA Lidocaine (Lidocaine Patch 1 Each Adh..Patch) 1 each TOP NOW ONE Stop: 03/17/21 12:37 Last Admin: 03/17/21 13:14 Dose: 1 each Documented by: MELISSA Vital Signs Vital signs: Vital Signs - 8 hr 03/17/21 10:25 Temperature 97.6 F Pulse Rate 96 H Respiratory Rate 16 Blood Pressure 131/83 Pulse Oximetry 99 MDM - Back Pain/Injury <Lynsey Gill, WAX MACHINE OPERATOR-BC - Last Filed: 03/17/21 15:16> Lab Data Attestation: I reviewed the patient's lab results. Result diagrams: 03/17/21 13:00 03/17/21 13:00 Labs: Lab Results 03/17/21 03/17/21 03/17/21 Range/Units 10:44 13:00 13:00 WBC 12.2 H (4.5-11.0) X10^3/uL RBC 4.56 (4.0-5.2) X10^6/uL Hgb 13.6 (12.0-16.0) g/dL Hct 41.6 (36-46) % MCV 91.2 (80-100) fL MCH 29.8 (26-34) PG MCHC 32.7 (30-36) % RDW 13.2 (11.6-14.8) % Plt Count 246 (150-400) X10^3/uL Neut % (Auto) 55.8 (50-75) % Lymph % (Auto) 36.6 (25-40) % [place] % (Auto) 5.8 (3-14) % Eos % (Auto) 1.3 L (2-4) % Baso % (Auto) 0.5 (0-2) % Neut # (Auto) 6800 (3413-0329) /uL Lymph # (Auto) 4500 (5286-7096) /uL [place] # (Auto) 700 (0-900) /uL Eos # (Auto) 200 (0-450) /uL Baso # (Auto) 100 (0-100) /uL Sodium 140 (137-145) mmol/L Potassium 3.5 (3.4-5.1) mmol/L Chloride 107 (98-107) mmol/L Carbon Dioxide 27 (22-32) mmol/L BUN 20 H (7-17) mg/dL Creatinine 0.84 (0.52-1.04) mg/dL Estimated GFR > 60.0 (>60) mL/min BUN/Creatinine Ratio 23.8 H (6-22) Glucose 100 (70-100) mg/dL Calcium 9.1 (8.4-10.2) mg/dL Magnesium 1.9 (1.6-2.3) mg/dL Total Bilirubin 0.3 (0.2-1.3) mg/dL AST 19 (14-36) IU/L ALT 17 (<35) IU/L Alkaline Phosphatase 121 (38-126) U/L Total Protein 6.1 L (6.3-8.2) g/dL Albumin 3.4 L (3.5-5.0) g/dL Globulin 2.7 (1.7-4.1) g/dL Albumin/Globulin Ratio 1.3 (1.0-2.8) TSH (0.47-4.68) uIU/mL SARS-CoV-2 (PCR) Negative (Negative) 03/17/21 Range/Units 13:00 WBC (4.5-11.0) X10^3/uL RBC (4.0-5.2) X10^6/uL Hgb (12.0-16.0) g/dL Hct (36-46) % MCV (80-100) fL MCH (26-34) PG MCHC (30-36) % RDW (11.6-14.8) % Plt Count (150-400) X10^3/uL Neut % (Auto) (50-75) % Lymph % (Auto) (25-40) % [place] % (Auto) (3-14) % Eos % (Auto) (2-4) % Baso % (Auto) (0-2) % Neut # (Auto) (4111-8496) /uL Lymph # (Auto) (1645-9198) /uL [place] # (Auto) (0-900) /uL Eos # (Auto) (0-450) /uL Baso # (Auto) (0-100) /uL Sodium (137-145) mmol/L Potassium (3.4-5.1) mmol/L Chloride (98-107) mmol/L Carbon Dioxide (22-32) mmol/L BUN (7-17) mg/dL Creatinine (0.52-1.04) mg/dL Estimated GFR (>60) mL/min BUN/Creatinine Ratio (6-22) Glucose (70-100) mg/dL Calcium (8.4-10.2) mg/dL Magnesium (1.6-2.3) mg/dL Total Bilirubin (0.2-1.3) mg/dL AST (14-36) IU/L ALT (<35) IU/L Alkaline Phosphatase (38-126) U/L Total Protein (6.3-8.2) g/dL Albumin (3.5-5.0) g/dL Globulin (1.7-4.1) g/dL Albumin/Globulin Ratio (1.0-2.8) TSH 2.26 (0.47-4.68) uIU/mL SARS-CoV-2 (PCR) (Negative) Urine Dip Bedside Urine Glucose Negative Bedside Urine Bilirubin - Negative Bedside Urine Ketone - Negative Urine Specific [place]eland 1.030 Bedside Urine Occult Blood - Negative Bedside Urine pH 6.0 Bedside Urine Protein - Negative Bedside Urine Urobilinogen - Negative Bedside Urine Nitrite - Negative Bedside Urine Leukocytes - Negative Esterase Imaging Data Lumbar x-ray: Radiologist's Impression: [address] [place] [id number] R eportSigned Patient: Pili Alvarez LMR#: [id number]: [id number]:[id number]/Sex: 45 / FDate of Service: 03/17/21Loc: EDAccession Number: [id number] Procedure: XR lumbar spine 2-3V Ordering Provider: Lynsey Gill PROCEDURE: XR LUMBAR SPINE 2-3V INDICATIONS: back pain TECHNIQUE: 3 views of the lumbar spine were acquired. COMPARISON: [facility], , XR LUMBAR SPINE 2 OR 3 VIEWS, 03/17/2021, 9:08. FINDINGS: Bones: No fracture. Disc spaces grossly preserved. Multilevel degenerative endplate sclerosis and spurring. Diffuse facet arthropathy. Soft tissues: Overlying bowel gas pattern is normal. No suspicious soft tissue calcifications. IMPRESSION: Mild discogenic changes. If the patient's pain or other symptoms persist, consider further evaluation with MRI Dictated by: Dominic Lockhart M.D. on 03/17/2021 at 13:24 Approved by: Dominic Lockhart M.D. on 03/17/2021 at 13:25 [facility] Narrative Medical decision making narrative: The patient is a 45-year-old female who presents to the emergency department with multiple complaints, though her primary complaint today is lower back pain for the past 2 weeks. Urine shows no signs of infection. X-ray has no acute abnormalities. Given her multiple complaints, I did do lab work which had no acute findings. She does not feel improved after the above stated medications. I discussed at length that she needs follow-up with primary care provider, discussed ER return precautions of saddle anesthesia incontinence of bowel incontinence of bladder etcetera. The patient does request to leave before her full lab work is back. She is aware that I do not have her TSH back, but needs to leave due to her ride situation. Patient has no questions or concerns upon discharge states understanding return precautions as well as follow-up care. TSH later returned within normal limits. <Codie Alvarado, DO - Last Filed: 03/17/21 19:45> Lab Data Labs: Lab Results 03/17/21 03/17/21 03/17/21 Range/Units 10:44 13:00 13:00 WBC 12.2 H (4.5-11.0) X10^3/uL RBC 4.56 (4.0-5.2) X10^6/uL Hgb 13.6 (12.0-16.0) g/dL Hct 41.6 (36-46) % MCV 91.2 (80-100) fL MCH 29.8 (26-34) PG MCHC 32.7 (30-36) % RDW 13.2 (11.6-14.8) % Plt Count 246 (150-400) X10^3/uL Neut % (Auto) 55.8 (50-75) % Lymph % (Auto) 36.6 (25-40) % [place] % (Auto) 5.8 (3-14) % Eos % (Auto) 1.3 L (2-4) % Baso % (Auto) 0.5 (0-2) % Neut # (Auto) 6800 (3578-5940) /uL Lymph # (Auto) 4500 (7710-2758) /uL [place] # (Auto) 700 (0-900) /uL Eos # (Auto) 200 (0-450) /uL Baso # (Auto) 100 (0-100) /uL Sodium 140 (137-145) mmol/L Potassium 3.5 (3.4-5.1) mmol/L Chloride 107 (98-107) mmol/L Carbon Dioxide 27 (22-32) mmol/L BUN 20 H (7-17) mg/dL Creatinine 0.84 (0.52-1.04) mg/dL Estimated GFR > 60.0 (>60) mL/min BUN/Creatinine Ratio 23.8 H (6-22) Glucose 100 (70-100) mg/dL Calcium 9.1 (8.4-10.2) mg/dL Magnesium 1.9 (1.6-2.3) mg/dL Total Bilirubin 0.3 (0.2-1.3) mg/dL AST 19 (14-36) IU/L ALT 17 (<35) IU/L Alkaline Phosphatase 121 (38-126) U/L Total Protein 6.1 L (6.3-8.2) g/dL Albumin 3.4 L (3.5-5.0) g/dL Globulin 2.7 (1.7-4.1) g/dL Albumin/Globulin Ratio 1.3 (1.0-2.8) TSH (0.47-4.68) uIU/mL SARS-CoV-2 (PCR) Negative (Negative) 03/17/21 Range/Units 13:00 WBC (4.5-11.0) X10^3/uL RBC (4.0-5.2) X10^6/uL Hgb (12.0-16.0) g/dL Hct (36-46) % MCV (80-100) fL MCH (26-34) PG MCHC (30-36) % RDW (11.6-14.8) % Plt Count (150-400) X10^3/uL Neut % (Auto) (50-75) % Lymph % (Auto) (25-40) % [place] % (Auto) (3-14) % Eos % (Auto) (2-4) % Baso % (Auto) (0-2) % Neut # (Auto) (4659-0264) /uL Lymph # (Auto) (3079-7809) /uL [place] # (Auto) (0-900) /uL Eos # (Auto) (0-450) /uL Baso # (Auto) (0-100) /uL Sodium (137-145) mmol/L Potassium (3.4-5.1) mmol/L Chloride (98-107) mmol/L Carbon Dioxide (22-32) mmol/L BUN (7-17) mg/dL Creatinine (0.52-1.04) mg/dL Estimated GFR (>60) mL/min BUN/Creatinine Ratio (6-22) Glucose (70-100) mg/dL Calcium (8.4-10.2) mg/dL Magnesium (1.6-2.3) mg/dL Total Bilirubin (0.2-1.3) mg/dL AST (14-36) IU/L ALT (<35) IU/L Alkaline Phosphatase (38-126) U/L Total Protein (6.3-8.2) g/dL Albumin (3.5-5.0) g/dL Globulin (1.7-4.1) g/dL Albumin/Globulin Ratio (1.0-2.8) TSH 2.26 (0.47-4.68) uIU/mL SARS-CoV-2 (PCR) (Negative) Urine Dip Bedside Urine Glucose Negative Bedside Urine Bilirubin - Negative Bedside Urine Ketone - Negative Urine Specific [place] 1.030 Bedside Urine Occult Blood - Negative Bedside Urine pH 6.0 Bedside Urine Protein - Negative Bedside Urine Urobilinogen - Negative Bedside Urine Nitrite - Negative Bedside Urine Leukocytes - Negative Esterase Discharge Plan Departure Patient Disposition: Home Clinical Impression: Low back pain Qualifiers: Chronicity: acute Back pain laterality: bilateral Sciatica presence: unspecified whether sciatica present Qualified Code(s): M54.5 - Low back pain Fatigue Qualifiers: Fatigue type: unspecified Qualified Code(s): R53.83 - Other fatigue Instructions: DI for Low Back Pain, DI for Fatigue, DI for Back Strain or Sprain Activity Restrictions/Additional Instructions: Thank you for trusting us with your care today As I discussed, your x-ray shows no acute fracture. This does not rule out a s oft tissue injury such as a ligament or tendon injury. It is important that you follow up with primary care provider, especially if worsening or no improvement. There can be fractures that did not show up on initial x-ray. As discussed, please come back to the emergency department for any acute co ncerns. With back pain, acute concerns would include numbness in your groin, new incontinence, neurological changes etcetera As discussed, you elected to leave prior to your labs returning. I will do my best call you if your TSH is off. However regardless you need to follow-up with primary care provider. I have given you contact information the [facility] health human resources trainee. As discussed, I sent your prescriptions to [facility] pharmacy I have given you a prescription of Toradol. This is an NSAID. Do not combine it with other NSAIDs such as Aleve or ibuprofen. I suggest taking it with some food, as it can irritate your stomach. I also sent a prescription of 5% lidocaine patches. If it is cost prohibitive, you can get the 4% lidocaine patches [id number] I also sent in a prescription of a muscle relaxer. Be aware that this can be sedating. Do not take this and drive or combine with anything like a bowel. Prescriptions: New cyclobenzaprine 10 mg tablet 10 mg PO TID PRN (Reason: muscle spasm) Qty: 14 RF: 0 ketorolac 10 mg tablet 10 mg PO TID PRN (Reason: pain) 5 Days Qty: 14 RF: 0 lidocaine 5 % adhesive patch,medicated 1 patch topical DAILY PRN (Reason: pain, moderate) Qty: 15 RF: 0 No Action chlorhexidine gluconate 0.12 % mouthwash 15 ml BUCCAL BID Qty: 450 RF: 0 Lidocaine Viscous 2 % solution 5 ml MM Q8H PRN (Reason: pain) Qty: 100 RF: 0 Arnuity Ellipta 200 mcg/actuation blister with device INHALATION RF: 0 nystatin 100,000 unit/mL suspension RF: 0 Stiolto Respimat 2.5-2.5 mcg/actuation mist INHALATION RF: 0 Protonix [address] for susp in packet 40 mg PO BID Qty: 60 RF: 0 ondansetron 4 mg tablet,disintegrating 4 mg PO Q6H PRN (Reason: nausea and vomiting) Qty: 14 RF: 0 Referrals: [facility] [Outside] <Codie Alvarado DO - Last Filed: 03/17/21 19:45> Cosign ED Attending Namita Attestation: I was immediately available in the department for consultation. Documentation has been reviewed. I agree with assessment and plan.
[2021-03-17 15:03] LABS: Thyroid Stimulating Hormone 2.26 uIU/mL (0.47-4.68)
== END 2021-03-17 14:24 | disposition home or self-care (01) ==
PROVIDERS: Emergency Medicine; Emergency Provider Nurse Practitioner Family
DX: M54.5 Low back pain (principal); R42 Dizziness and giddiness; R51.9 Headache, unspecified; R53.83 Other fatigue; Z20.822 Contact with and (suspected) exposure to COVID-19
CPT/HCPCS: 36415; 72100; 80053; 81003; 83735; 84443; 85025; 87635; 93005; 93010; 96372; 99284; C9803; J1885

== ENCOUNTER 2021-07-07 21:21 | Emergency (ER) | payer OTHER, MEDICAID, SELFPAY ==
[2021-07-07 21:35] VITALS: BP 150/90; PULSE 100; RESP 18; TEMP 36.8; O2SAT 97
== END 2021-07-07 23:38 | disposition left against medical advice (07) ==
PROVIDERS: Emergency Provider Emergency Medicine
CPT/HCPCS: 99281

== ENCOUNTER 2021-08-08 22:33 | Emergency (ER) | payer OTHER, MEDICAID, SELFPAY ==
[2021-08-08 22:51] VITALS: BP 154/74; PULSE 84; RESP 22; TEMP 37.2; O2SAT 99
--- NOTE | 2021-08-08 22:52 | DI.CT.S_ITS ---
PROCEDURE: CT CERVICAL SPINE WO CON INDICATIONS: neck pain, swelling TECHNIQUE: Noncontrast 3 mm thick sections acquired from the skull base to the T4 level. Sagittal and coronal reformats were then constructed. For radiation dose reduction, the following was used: automated exposure control, adjustment of mA and/or kV according to patient size. COMPARISON: None. FINDINGS: Image quality: Excellent. Bones: No fractures or dislocations. Visualized superior ribs are intact. There is degenerative disc disease at C4-5. Disc osteophytes at this level cause central canal stenosis [id number] in degree. Soft tissues: Prevertebral soft tissues are normal in thickness. No paravertebral hematomas. No apical pneumothoraces. IMPRESSION: 1. No acute abnormality. 2. Degenerative disc disease at C4-5 with disc osteophytes causing mild to central canal stenosis. Dictated by: Omar Da Silva M.D. on 08/08/2021 at 23:10 Approved by: Omar Da Silva M.D. on 08/08/2021 at 23:16
[2021-08-08 23:05] LABS: Add Manual Diff / Slide Review NO; Basophils Absolute Auto 100 /uL (0-100); Basophils Percent Auto 0.6 % (0-2); Eosinophils Absolute Auto 200 /uL (0-450); Eosinophils Percent Auto 1.8 % (2-4); Hemoglobin 14.8 g/dL (12.0-16.0); Lymphocytes Absolute Auto 3400 /uL (1100-4500); Lymphocytes Percent Auto 30.4 % (25-40); Mean Corpuscular HGB Conc 32.2 % (30-36); Mean Corpuscular Hemoglobin 30.1 PG (26-34); Mean Corpuscular Volume 93.4 fL (80-100); Monocytes Absolute Auto 800 /uL (0-900); Neutrophils Absolute Auto 6700 /uL (1500-7000); Neutrophils Percent Auto 60.2 % (50-75); Platelet Count 245 X10^3/uL (150-400); Red Blood Cell Count 4.93 X10^6/uL (4.0-5.2); Red Cell Distribution Width 13.4 % (11.6-14.8); White Blood Cell Count 11.2 X10^3/uL (4.5-11.0)
[2021-08-08] MEDS: KETOROLAC 30 MG/ML VIAL 15 MG IV (23:05)
[2021-08-08 23:07] LABS: Alanine Aminotransferase 17 IU/L (<35); Albumin 3.9 g/dL (3.5-5.0); Albumin Globulin Ratio 1.4 (1.0-2.8); Alkaline Phosphatase 121 U/L (38-126); Aspartate Aminotransferase 20 IU/L (14-36); BUN Creatinine Ratio 17.6 (6-22); Bilirubin Total 0.2 mg/dL (0.2-1.3); Blood Urea Nitrogen 15 mg/dL (7-17); C-Reactive Protein Quant 1.7 mg/dL (<1.0); Calcium 8.9 mg/dL (8.4-10.2); Carbon Dioxide 28 mmol/L (22-32); Chloride 106 mmol/L (98-107); Estimated Glomerular Filt Rate > 60.0 mL/min (>60); Globulin 2.7 g/dL (1.7-4.1); Glucose 105 mg/dL (70-100); HEMOLYSIS < 15 (0-50); Potassium 4.1 mmol/L (3.4-5.1); Sodium 141 mmol/L (137-145); Total Protein 6.6 g/dL (6.3-8.2)
[2021-08-08] MEDS: HYDROMORPHONE 0.5 MG INJ IV (23:10)
[2021-08-08] MEDS: SODIUM CHLORIDE 0.9% 1,000 ML 1000 ML IV (23:11)
[2021-08-08] MEDS: DEXAMETHASONE 10 MG/ML VIAL IV (23:12)
[2021-08-08 23:14] VITALS: BP 154/74; PULSE 84; O2SAT 96
[2021-08-08 23:34] LABS: Erythrocyte Sedimentation Rate 4 MM/HR (0-20)
--- NOTE | 2021-08-09 00:01 | ED.HA ---
HPI - Headache General Chief Complaint: Headache Stated Complaint: pain radiating from brain stem Time Seen by Provider: 08/08/21 22:37 Mode of arrival: Ambulatory History of Present Illness HPI Narrative: 46-year-old female daily smoker with history of chronic pain presents with a chief complaint of gradually worsening neck pain that started at her nuchal ridge in now extends down along her paraspinal muscles and up onto the top of her head. She has increased pain with range of motion and improvement with rest. He denies any focal neurologic findings and has no numbness, tingling or weakness. She denies any recent trauma. She's had no fever or chills. She denies any radicular symptoms. She has tried some heating pads as well as Tylenol and Motrin at home without much in the way of relief. She has had no nausea or vomiting. She denies blurred vision or trouble with speech. Related Data Home Medications Medication Instructions Recorded Confirmed fluticasone furoate 200 INHALATION 12/28/19 mcg/actuation blister powder for inhalation (Arnuity Ellipta) nystatin 100,000 unit/mL oral 12/28/19 suspension tiotropium 2.5 mcg-olodaterol 2.5 INHALATION 12/28/19 mcg/actuation mist for inhalation (Stiolto Respimat) Previous Rx's Medication Instructions Recorded chlorhexidine gluconate 0.12 % 15 ml BUCCAL BID #450 ml 12/28/19 mouthwash lidocaine HCl 2 % mucosal solution 5 ml MM Q8H PRN #100 ml 12/28/19 (Lidocaine Viscous) pantoprazole 40 mg granules 40 mg PO BID #60 each 05/15/20 delayed-release for susp in packet (Protonix) ondansetron 4 mg disintegrating 4 mg PO Q6H PRN #14 tab 01/11/21 tablet cyclobenzaprine 10 mg tablet 10 mg PO TID PRN #14 tab 03/17/21 lidocaine 5 % topical patch 1 patch TOPICAL DAILY PRN #15 ea 03/17/21 ketorolac 10 mg tablet 10 mg PO Q6H PRN #14 tab 08/09/21 methylprednisolone 4 mg tablets in See Rx Instructions PO .COMPLEX 08/09/21 a dose pack (Medrol (Efra)) #21 ea Allergies Allergy/AdvReac Type Severity Reaction Status Date / Time prochlorperazine Allergy Intermediate It sends Verified 03/17/21 10:33 [From COMPAZINE] me into a Major panic attack Sulfa (Sulfonamide Allergy Intermediate HIVES Verified 03/17/21 10:33 Antibiotics) [SULFA (SULFONAMIDE ANTIBIOTICS)] aspirin [ASPIRIN] Allergy Unknown THINS MY Verified 03/17/21 10:33 BLOOD Review of Systems Review of Systems Narrative: GENERAL: Denies chills, fatigue, malaise, fever, sweats. HEENT: Denies sinus pain, ear pain, sore throat, difficulty swallowing, dizziness. RESPIRATORY: Denies dyspnea, cough, wheezing, hemoptysis, sputum. CARDIOVASCULAR: Denies chest pain, palpitations, orthopnea, edema, GASTROINTESTINAL: Denies nausea, vomiting, abdominal pain, diarrhea, constipation, melena. : Denies dysuria, frequency, incontinence, hematuria, urinary retention. MUSCULOSKELETAL: See HPI SKIN: Denies rash, skin lesions, or other NEUROLOGIC: Denies weakness, headache, numbness, change in speech, confusion, seizures, incoordination. PSYCHIATRIC: No concerning psychosocial issues. 12 point review of systems is negative except for those stated above Patient History Medical History Bravo's palsy Colon cancer Sarcoid Surgical History H/O left knee surgery History of appendectomy History of lung surgery History of surgical removal of intestinal structure Social History Smoking Status: Current every day smoker Smoking Status: Current every day smoker tobacco type: cigarettes alcohol intake frequency: holidays/special occasions only Substance Use Type: does not use Exam Narrative Exam Narrative: GENERAL: [46 year old patient appears stated age. Well-developed patient, in mild distress. Obviously uncomfortable, holding her head and neck still HEAD: Atraumatic. Normocephalic. EYES: Pupils equal round and reactive. Extraocular motions intact. No scleral icterus. No injection or drainage. ENT: Nose without bleeding, purulent drainage. Throat without erythema, tonsillar hypertrophy or exudate. Airway patent. NECK: Trachea midline. Tender in the paraspinal musculature. No change with axial loading, no radiation to shoulders or arms CARDIOVASCULAR: Regular rate and rhythm without murmurs, gallops, or rubs. RESPIRATORY: Clear to auscultation. Breath sounds equal bilaterally. No wheezes, rales, or rhonchi. GASTROINTESTINAL: Abdomen soft, non-tender, nondistended. EXTREMITIES: No edema or joint tenderness. BACK: Nontender without deformity or crepitance. No flank tenderness. NEURO: AOx3. SKIN: No rash or erythema of visible areas Initial Vital Signs Initial Vital Signs: Vital Signs Temperature 99.0 F 08/08/21 22:51 Pulse Rate 84 08/08/21 22:51 Respiratory Rate 22 08/08/21 22:51 Blood Pressure 154/74 H 08/08/21 22:51 Pulse Oximetry 99 08/08/21 22:51 Course Orders Ordered: ED Orders 08/08/21 22:45 C-Reactive Protein Quant Stat Complete Blood Count AUTO DIFF Stat Comprehensive Metabolic Panel Stat Erythrocyte Sedimentation Rate Stat 08/08/21 22:52 CT cervical spine wo con Stat Discontinued Medications Dexamethasone (Dexamethasone 10 Mg/Ml Vial) 10 mg IV NOW ONE Stop: 08/08/21 22:52 Last Admin: 08/08/21 23:12 Dose: 10 mg Documented by: FABIO Hydromorphone HCl (Hydromorphone 0.5 Mg Inj) 0.5 mg IV NOW ONE Stop: 08/08/21 22:52 Last Admin: 08/08/21 23:10 Dose: 0.5 mg Documented by: FABIO Sodium Chloride (Normal Saline 0.9%) 1,000 mls @ 1,000 mls/hr IV BOLUS ONE Stop: 08/08/21 23:50 Last Infusion: 08/09/21 01:09 Dose: 0 mls/hr Documented by: Admin: 08/08/21 23:11 Dose: 1,000 mls/hr Documented by: FABIO Ketorolac Tromethamine (Ketorolac 30 Mg/Ml Vial) 15 mg IV NOW ONE Stop: 08/08/21 22:52 Last Admin: 08/08/21 23:05 Dose: 15 mg Documented by: FABIO Reevaluation(s) Reevaluation #1: Patient has significant improvement with the above stated therapies Vital Signs Vital signs: Vital Signs - 8 hr 08/08/21 22:51 08/08/21 23:14 08/09/21 01:19 Temperature 99.0 F Pulse Rate 84 84 78 Respiratory Rate 22 20 Blood Pressure 154/74 H 154/74 H 145/74 H Pulse Oximetry 99 96 100 MDM - Headache Lab Data Result diagrams: 08/08/21 22:45 08/08/21 22:45 Labs: Lab Results 08/08/21 08/08/21 Range/Units 22:45 22:45 WBC 11.2 H (4.5-11.0) X10^3/uL RBC 4.93 (4.0-5.2) X10^6/uL Hgb 14.8 (12.0-16.0) g/dL Hct 46.0 (36-46) % MCV 93.4 (80-100) fL MCH 30.1 (26-34) PG MCHC 32.2 (30-36) % RDW 13.4 (11.6-14.8) % Plt Count 245 (150-400) X10^3/uL Neut % (Auto) 60.2 (50-75) % Lymph % (Auto) 30.4 (25-40) % [place] % (Auto) 7.0 (3-14) % Eos % (Auto) 1.8 L (2-4) % Baso % (Auto) 0.6 (0-2) % Neut # (Auto) 6700 (2719-1743) /uL Lymph # (Auto) 3400 (5842-5695) /uL [place] # (Auto) 800 (0-900) /uL Eos # (Auto) 200 (0-450) /uL Baso # (Auto) 100 (0-100) /uL ESR 4 (0-20) MM/HR Sodium 141 (137-145) mmol/L Potassium 4.1 (3.4-5.1) mmol/L Chloride 106 (98-107) mmol/L Carbon Dioxide 28 (22-32) mmol/L BUN 15 (7-17) mg/dL Creatinine 0.85 (0.52-1.04) mg/dL Estimated GFR > 60.0 (>60) mL/min BUN/Creatinine Ratio 17.6 (6-22) Glucose 105 H (70-100) mg/dL Calcium 8.9 (8.4-10.2) mg/dL Total Bilirubin 0.2 (0.2-1.3) mg/dL AST 20 (14-36) IU/L ALT 17 (<35) IU/L Alkaline Phosphatase 121 (38-126) U/L C-Reactive Protein 1.7 H (<1.0) mg/dL Total Protein 6.6 (6.3-8.2) g/dL Albumin 3.9 (3.5-5.0) g/dL Globulin 2.7 (1.7-4.1) g/dL Albumin/Globulin Ratio 1.4 (1.0-2.8) Imaging Data CT - cervical spine: Radiologist's Impression: Pili Alvarez??46??F??1975 ? Allergy/Adv: prochlorperazine, Sulfa (Sulfonamide Antibiotics), aspirin (More??) Close Cervical Spine CT (Signed) Omar Da Silva - 08/08/21 Lumbar Spine X-Ray (Signed) Dominic Lockhart - 03/17/21 Abdomen/Pelvis CT (Signed) KaitAdenike cottrell - 01/11/[address] (Signed) Eduardo Lopez - 06/16/20 Chest X-Ray (Signed) Anam Reyez - 06/16/20 Abdomen/Pelvis CT (Signed) Jacob Phipps - 05/14/20 Chest X-Ray (Signed) Talia Cooley - 10/18/19 Radiology - Historical 05/11/16 Radiology - Historical 05/11/16 Launch?[place] [address] CT Scan Report Signed Patient: Pili Alvarez MR#: [id number] : 1975 Acct:[id number] Age/Sex: 46 / F Date of Service: 08/08/21 Loc: ED Accession Number: [id number] ?? Procedure: CT cervical spine wo con Ordering Provider: Juaquin Pretty D.O. PROCEDURE:? CT CERVICAL SPINE WO CON ? INDICATIONS:? neck pain, swelling ? TECHNIQUE:? Noncontrast 3 mm thick sections acquired from the skull base to the T4 level.? Sagittal and coronal reformats were then constructed.? For radiation dose reduction, the following was used:? automated exposure control, adjustment of mA and/or kV according to patient size.? ? COMPARISON:? None. ? FINDINGS:? Image quality:? Excellent.? ? Bones:? No fractures or dislocations.? Visualized superior ribs are intact.? There is degenerative disc disease at C4-5.? Disc osteophytes at this level cause central canal stenosis [id number] in degree. ? Soft tissues:? Prevertebral soft tissues are normal in thickness.? No paravertebral hematomas.? No apical pneumothoraces.? ? ? IMPRESSION:? 1. No acute abnormality. 2. Degenerative disc disease at C4-5 with disc osteophytes causing mild to central canal stenosis. ? Dictated by: Omar Da Silva M.D. on 08/08/2021 at 23:10 ? ? Approved by: Omar Da Silva M.D. on 08/08/2021 at 23:16 ? MDM Narrative Medical decision making narrative: 46-year-old female with gradually worsening neck pain in the absence of any injury. She has no fever chills nor radicular signs. She denies any focal neurologic symptoms. Response to therapies is reassuring, imaging is reassuring. We did discuss the potential, although atypical presentation of possible meningitis but she adamantly refuses any discussion about a lumbar puncture despite discussion of risk and benefit. She is alert and oriented and has had no infectious symptoms. She has been given return precautions and questions answered to her apparent satisfaction Discharge Plan Departure Patient Disposition: Home Clinical Impression: Neck pain, Central stenosis of spinal canal Instructions: DI for Neck Pain Activity Restrictions/Additional Instructions: *You have been diagnosed with [neck pain, physical exam is very reassuring. Imaging would suggest arthritis, osteophytes and central canal stenosis. *What to do: *Please continue to take your regular medications as directed. [ x] New medication prescriptions sent to your pharmacy: [[facility] ] [ ] New medication written as a paper prescription [ ] No new medications given *Please follow up with your primary care provider in 2-3 days, call for an appointment. Let them know you were seen in the Emergency Department and that we ask that you be seen in follow up. We will electronically transmit a record of today's note if your PCP is in our system *If you do not have a primary care provider please contact the [facility] Resource line at [phone]. They will ask some questions about your medical history and help get you set up with a doctor in the community. *Return to Emergency Department if you should have any new, worsening or concerning symptoms, such as [fever greater than 101 F, shaking chills, worsening pain, persistent vomiting or other bothersome symptoms] Prescriptions: New ketorolac 10 mg tablet 10 mg PO Q6H PRN (Reason: pain) Qty: 14 RF: 0 methylprednisolone [Medrol (Efra)] 4 mg tablets,dose pack See Rx Instructions PO .COMPLEX Qty: 21 RF: 0 No Action chlorhexidine gluconate 0.12 % mouthwash 15 ml BUCCAL BID Qty: 450 RF: 0 Lidocaine Viscous 2 % solution 5 ml MM Q8H PRN (Reason: pain) Qty: 100 RF: 0 Arnuity Ellipta 200 mcg/actuation blister with device INHALATION RF: 0 nystatin 100,000 unit/mL suspension RF: 0 Stiolto Respimat 2.5-2.5 mcg/actuation mist INHALATION RF: 0 Protonix [address] for susp in packet 40 mg PO BID Qty: 60 RF: 0 ondansetron 4 mg tablet,disintegrating 4 mg PO Q6H PRN (Reason: nausea and vomiting) Qty: 14 RF: 0 cyclobenzaprine 10 mg tablet 10 mg PO TID PRN (Reason: muscle spasm) Qty: 14 RF: 0 lidocaine 5 % adhesive patch,medicated 1 patch topical DAILY PRN (Reason: pain, moderate) Qty: 15 RF: 0
[2021-08-09 01:19] VITALS: BP 145/74; PULSE 78; RESP 20; O2SAT 100
== END 2021-08-09 01:19 | disposition home or self-care (01) ==
PROVIDERS: Emergency Provider Emergency Medicine
DX: M48.02 Spinal stenosis, cervical region (principal); M54.2 Cervicalgia
CPT/HCPCS: 72125; 80053; 85025; 85651; 86140; 96361; 96374; 96375; 99283; 99284; J1100; J1170; J1885